=== PATIENT | male | born 1995 | race Hispanic/Latino ===

== ENCOUNTER 2018-12-15 12:29 | Emergency (ER) | payer SELFPAY ==
--- NOTE | 2018-12-15 13:57 | RAD REPORT ---
EXAM DESCRIPTION: RAD - Chest Pa And Lat (2 Views) - 12/15/2018 1:46 pm CLINICAL HISTORY: PRODUCTIVE COUGH Chest pain. COMPARISON: ABDOMEN 1 VIEW KUB dated 06/27/2013 FINDINGS: The lungs are clear. The heart is normal in size. No displaced fractures. IMPRESSION: No acute or concerning finding suspected.
[2018-12-15 14:00] LABS: Absolute Lymphocytes (CBC) 2.8 K/uL (0.7-4.9); Basophils % 0.7 % (0-1.3); Eosinophils % 3.5 % (0-4.4); Hematocrit 48.5 % (39.6-49.0); Lymphocytes % 24.4 % (15.3-44.8); MPV 8.7 fL (7.6-11.3); Monocytes % 6.1 % (3.3-12.3); RBC Red Blood Cell Count 5.58 M/uL (4.33-5.43)
[2018-12-15 14:10] LABS: ALT/SGPT 55 U/L (12-78); AST/SGOT 37 U/L (15-37); Albumin 3.8 g/dL (3.4-5.0); Alkaline Phosphatase 83 U/L (45-117); BUN Blood Urea Nitrogen 11 mg/dL (7-18); Bicarbonate 27 mmol/L (21-32); Bilirubin Direct < 0.1 mg/dL (0-0.2); Bilirubin Total 0.4 mg/dL (0.2-1.0); Glucose Level 95 mg/dL (74-106); Lipase 101 U/L (73-393); Potassium 4.8 mmol/L (3.5-5.1); Protein, Total 8.3 g/dL (6.4-8.2); Sodium Level 142 mmol/L (136-145)
--- NOTE | 2018-12-15 15:04 | EDPHYS ---
Physician Documentation [facility] Name: Ayden Marie Age: 22 yrs Sex: Male : 1995 Arrival Date: 12/15/2018 Time: 12:30 Bed 25 Private MD: ED Physician Aiden Muir HPI: 12/15 13:17 This 22 yrs old Male presents to ER via Ambulatory with complaints of Chest jmm Congestion, Diarrhea. 13:17 The patient or guardian reports cough. Onset: The symptoms/episode began/occurred jmm gradually, 4 day(s) ago. Associated signs and symptoms: Pertinent positives: diarrhea, sore throat. This is a 22 year old male with no chronic medical conditions that presents to the ED with complaints of cough, congestion beginning approx 4 days ago. Patient states having productive cough along with generalized weakness. . Historical: - Allergies: 12:44 No Known Allergies; hb - PSHx: 12:44 Appendectomy; hb - Immunization history:: Adult Immunizations up to date. - Social history:: Smoking status: Patient/guardian denies using tobacco. - Ebola Screening: : No symptoms or risks identified at this time. ROS: 13:17 Cardiovascular: Negative for chest pain, palpitations, and edema. jmm 13:17 Constitutional: Positive for malaise. 13:17 Respiratory: Positive for cough. 13:17 Abdomen/GI: Positive for vomiting, diarrhea. 13:17 Neuro: Positive for weakness. 13:17 All other systems are negative. Exam: 13:17 Constitutional: This is a well developed, well nourished patient who is awake, alert, jmm and in no acute distress. Head/Face: atraumatic. Eyes: EOMI, no conjunctival erythema appreciated ENT: Moist Mucus Membranes Neck: Trachea midline, Supple Chest/axilla: Normal chest wall appearance and motion. 13:17 Back: Normal ROM Skin: General appearance color normal MS/ Extremity: Moves all extremities, no obvious deformities appreciated, no edema noted to the lower extremities Neuro: Awake and alert, normal gait Psych: Behavior is normal, Mood is normal, Patient is cooperative and pleasant 13:17 Cardiovascular: Rate: normal, Rhythm: regular. 13:17 Respiratory: the patient does not display signs of respiratory distress, Respirations: normal, Breath sounds: are clear throughout. 13:17 Abdomen/GI: Inspection: abdomen appears normal, Bowel sounds: normal, Palpation: abdomen is soft and non-tender, in all quadrants. Vital Signs: 12:44 BP 147 / 83; Pulse 84; Resp 16; Temp 98.4; Pulse Ox 100% on R/A; Weight 117.93 kg; hb Height 5 ft. 8 in. (172.72 cm); Pain 0/10; 14:51 BP 138 / 72; Pulse 73; Resp 18; Temp 98.2; Pulse Ox 98% on R/A; mg2 12:44 Body Mass Index 39.53 (117.93 kg, 172.72 cm) hb MDM: 13:17 Patient medically screened. [facility] 15:00 Data reviewed: vital signs, nurses notes. Counseling: I had a detailed discussion with [facility] the patient and/or guardian regarding: the historical points, exam findings, and any diagnostic results supporting the discharge/admit diagnosis, lab results, radiology results, the need for outpatient follow up, to return to the emergency department if symptoms worsen or persist or if there are any questions or concerns that arise at home. 15:34 ED course: Patient is alert and non toxic in appearance in the ED. CXR clear. patient [facility] advised to follow up with pcp but otherwise given strict return precautions. . 12/15 13:21 Order name: Basic Metabolic Panel [facility] 12/15 13:21 Order name: CBC with Diff; Complete Time: 14:40 [facility] 12/15 13:21 Order name: Creatinine for Radiology; Complete Time: 14:40 [facility] 12/15 13:21 Order name: Hepatic Function; Complete Time: 14:40 [facility] 12/15 13:21 Order name: Lipase; Complete Time: 14:40 [facility] 12/15 13:22 Order name: Basic Metabolic Panel; Complete Time: 14:40 [facility] 12/15 13:21 Order name: IV Saline Lock; Complete Time: 13:26 [facility] 12/15 13:21 Order name: Labs collected and sent; Complete Time: 13:26 [facility] 12/15 13:21 Order name: Chest Pa And Lat (2 Views) XRAY; Complete Time: 14:01 [facility] Administered Medications: No medications were administered Disposition: 12/15/18 15:03 Discharged to Home. Impression: Acute bronchitis. - Condition is Stable. - Discharge Instructions: Acute Bronchitis, Adult. - Prescriptions for Albuterol Sulfate 90 mcg/actuation - inhale 1-2 puff by INHALATION route every 4-6 hours; 1 Inhaler. - Medication Reconciliation Form, Thank You Letter, Antibiotic Education, Prescription Opioid Use form. - Follow up: Private Physician; When: 2 - 3 days; Reason: Recheck today's complaints, Continuance of care, Re-evaluation by your physician. Addendum: 12/17/2018 07:35 Co-signature as Attending Physician, Aiden Muir MD. g s Signatures: Dispatcher [employer] EDMS Jonatan Estrella PA PA jmm Baxter, Heather, RN RN Aiden Muir MD MD Clinton Oneil RN RN mg2 Corrections: (The following items were deleted from the chart) 12/15 15:16 15:03 12/15/2018 15:03 Discharged to Home. Impression: Acute bronchitis. Condition is mg2 Stable. Forms are Medication Reconciliation Form, Thank You Letter, Antibiotic Education, Prescription Opioid Use. Follow up: Private Physician; When: 2 - 3 days; Reason: Recheck today's complaints, Continuance of care, Re-evaluation by your physician. yunior
--- NOTE | 2018-12-15 15:04 | ER ---
Nurse's Notes [facility] Name: Ayden Marie Age: 22 yrs Sex: Male : 1995 Arrival Date: 12/15/2018 Time: 12:30 Bed 25 Private MD: Diagnosis: Acute bronchitis Presentation: 12/15 12:42 Presenting complaint: Productive cough and pain with cough x 2-3 days, N/V/D today. hb Transition of care: patient was not received from another setting of care. Onset of symptoms was December 12, 2018. Risk Assessment: Do you want to hurt yourself or someone else? Patient reports no desire to harm self or others. Initial Sepsis Screen: Does the patient meet any 2 criteria? No. Patient's initial sepsis screen is negative. Does the patient have a suspected source of infection? No. Patient's initial sepsis screen is negative. Care prior to arrival: Medication(s) given: Unknown nasal sprray. 12:42 Method Of Arrival: Ambulatory hb 12:42 Acuity: YENNY 3 hb Historical: - Allergies: 12:44 No Known Allergies; hb - PSHx: 12:44 Appendectomy; hb - Immunization history:: Adult Immunizations up to date. - Social history:: Smoking status: Patient/guardian denies using tobacco. - Ebola Screening: : No symptoms or risks identified at this time. Screenin:49 Abuse screen: Denies threats or abuse. Denies injuries from another. Nutritional mg2 screening: No deficits noted. Tuberculosis screening: No symptoms or risk factors identified. Fall Risk IV access (20 points). Assessment: 13:47 General: Appears in no apparent distress. comfortable, Behavior is calm, cooperative. mg2 Pain: Denies pain. Neuro: Level of Consciousness is awake, alert, obeys commands, Oriented to person, place, time, situation. Cardiovascular: Capillary refill < 3 seconds Patient's skin is warm and dry. Respiratory: Airway is patent Respiratory effort is even, unlabored, Respiratory pattern is regular, symmetrical. Respiratory: Reports cough that is non-productive, since 2 weeks. GI: Abdomen is non-distended, Reports diarrhea. : No signs and/or symptoms were reported regarding the genitourinary system. EENT: No signs and/or symptoms were reported regarding the EENT system. Derm: Skin is intact, is healthy with good turgor, Skin is pink, warm \T\ dry. normal. Musculoskeletal: Circulation, motion, and sensation intact. Capillary refill < 3 seconds. 15:15 Reassessment: No changes from previously documented assessment. mg2 Vital Signs: 12:44 BP 147 / 83; Pulse 84; Resp 16; Temp 98.4; Pulse Ox 100% on R/A; Weight 117.93 kg; hb Height 5 ft. 8 in. (172.72 cm); Pain 0/10; 14:51 BP 138 / 72; Pulse 73; Resp 18; Temp 98.2; Pulse Ox 98% on R/A; mg2 12:44 Body Mass Index 39.53 (117.93 kg, 172.72 cm) hb ED Course: 12:30 Patient arrived in ED. as 12:44 Triage completed. hb 12:44 Arm band placed on. hb 13:02 Jonatan Estrella PA is PHCP. [facility] 13:02 Aiden Muir MD is Attending Physician. [facility] 13:09 Clinton Oneil, JOSIANE is Primary Nurse. mg2 13:45 Chest Pa And Lat (2 Views) XRAY In Process Unspecified. EDMS 13:49 Patient has correct armband on for positive identification. Pulse ox on. NIBP on. Door mg2 closed. 13:49 No provider procedures requiring assistance completed. Inserted saline lock: 20 gauge mg2 in left antecubital area, using aseptic technique. Blood collected. 15:15 IV discontinued, intact, bleeding controlled, No redness/swelling at site. Pressure mg2 dressing applied. Administered Medications: No medications were administered Outcome: 15:03 Discharge ordered by . yunior 15:15 Discharged to home ambulatory, with family. mg2 15:15 Condition: stable 15:15 Discharge instructions given to patient, Instructed on discharge instructions, follow up and referral plans. medication usage, Demonstrated understanding of instructions, follow-up care, medications, Prescriptions given X 1. 15:16 Patient left the ED. mg2 Signatures: Dispatcher [employer] EDMS Jonatan Estrella PA PA jmm Martinez, Amelia as Baxter, Heather, RN RN Clinton Oneil, JOSIANE RN mg2 Corrections: (The following items were deleted from the chart) 14:54 14:51 BP 138 / 72; Pulse 73bpm; Resp 18bpm; Pulse Ox 98% RA; mg2 mg2
[2018-12-15 15:41] VITALS: BP 138/72; TEMP 98.2; O2SAT 98
== END 2018-12-15 15:16 | disposition home or self-care (01) ==
LOC: ER 12:29
DX: J20.9 Acute bronchitis, unspecified (principal)
CPT/HCPCS: 36415; 71046; 80048; 80076; 83690; 85025; 99284

== ENCOUNTER 2019-05-17 15:38 | Emergency (ER) | payer SELFPAY ==
--- NOTE | 2019-05-17 17:16 | EDPHYS ---
Physician Documentation [facility] Name: Ayden Marie Age: 23 yrs Sex: Male : 1995 Arrival Date: 05/17/2019 Time: 15:44 Bed 24 Private MD: ED Physician Alexander Mathews HPI: 05/17 16:18 This 23 yrs old Male presents to ER via Ambulatory with complaints of Cough, jr8 Ear Pain, Sore Throat. 16:18 The patient or guardian reports cough, that is intermittent, described as mild, with no jr8 sputum. Onset: The symptoms/episode began/occurred acutely, 3 day(s) ago. Severity of symptoms: At their worst the symptoms were mild, in the emergency department the symptoms are unchanged. Modifying factors: The symptoms are alleviated by nothing, the symptoms are aggravated by nothing. Associated signs and symptoms: Pertinent positives: earache, sore throat. The patient has not experienced similar symptoms in the past. The patient has not recently seen a physician. Historical: - Allergies: 16:04 No Known Allergies; hb - Home Meds: 16:04 None [Active]; hb - PMHx: 16:04 None; hb - PSHx: 16:04 None; hb - Immunization history:: Adult Immunizations up to date. - Social history:: Smoking status: Patient/guardian denies using tobacco. - Ebola Screening: : No symptoms or risks identified at this time. ROS: 16:18 Eyes: Negative for injury, pain, redness, and discharge, Neck: Negative for injury, jr8 pain, and swelling, Cardiovascular: Negative for chest pain, palpitations, and edema, Abdomen/GI: Negative for abdominal pain, nausea, vomiting, diarrhea, and constipation, Back: Negative for injury and pain, MS/Extremity: Negative for injury and deformity, Skin: Negative for injury, rash, and discoloration, Neuro: Negative for headache, weakness, numbness, tingling, and seizure. 16:18 ENT: Positive for rhinorrhea, sore throat. 16:18 Respiratory: Positive for cough, Negative for dyspnea on exertion, shortness of breath, sputum production, wheezing. Exam: 16:18 Eyes: Pupils equal round and reactive to light, extra-ocular motions intact. Lids and jr8 lashes normal. Conjunctiva and sclera are non-icteric and not injected. Cornea within normal limits. Periorbital areas with no swelling, redness, or edema. Neck: Trachea midline, no thyromegaly or masses palpated, and no cervical lymphadenopathy. Supple, full range of motion without nuchal rigidity, or vertebral point tenderness. No Meningismus. Cardiovascular: Regular rate and rhythm with a normal S1 and S2. No gallops, murmurs, or rubs. Normal PMI, no JVD. No pulse deficits. Respiratory: Lungs have equal breath sounds bilaterally, clear to auscultation and percussion. No rales, rhonchi or wheezes noted. No increased work of breathing, no retractions or nasal flaring. Abdomen/GI: Soft, non-tender, with normal bowel sounds. No distension or tympany. No guarding or rebound. No evidence of tenderness throughout. Back: No spinal tenderness. No costovertebral tenderness. Full range of motion. Skin: Warm, dry with normal turgor. Normal color with no rashes, no lesions, and no evidence of cellulitis. MS/ Extremity: Pulses equal, no cyanosis. Neurovascular intact. Full, normal range of motion. Neuro: Awake and alert, GCS 15, oriented to person, place, time, and situation. Cranial nerves II-XII grossly intact. Motor strength 5/5 in all extremities. Sensory grossly intact. Cerebellar exam normal. Normal gait. 16:18 ENT: External ear(s): are unremarkable, Ear canal(s): are normal, clear, TM's: dullness, on the right, erythema, that is mild, on the right, Examination of the other ear shows no obvious abnormality, Nose: is normal, Mouth: Lips: moist, Oral mucosa: pink and intact, moist, Gums: pink, Tongue: is moist, Posterior pharynx: Airway: patent, Tonsils: are normal in appearance, no enlargement, no erythema, no exudate, no ulcerations, Uvula: midline, non-edematous, no erythema, swelling, is not appreciated, erythema, is not appreciated. Vital Signs: 16:04 BP 135 / 79; Pulse 100; Resp 16; Temp 98.4; Pulse Ox 100% on R/A; Weight 117.93 kg; hb Height 5 ft. 9 in. (175.26 cm); Pain 4/10; 17:15 BP 130 / 78; Pulse 98; Resp 18; Temp 99.3(O); Pulse Ox 100% on R/A; mg2 16:04 Body Mass Index 38.39 (117.93 kg, 175.26 cm) hb MDM: 15:53 Patient medically screened. jr8 17:24 Data reviewed: vital signs, nurses notes, and as a result, I will discharge patient. jr8 Data interpreted: Pulse oximetry: on room air is 100 %. Interpretation: normal. Counseling: I had a detailed discussion with the patient and/or guardian regarding: the historical points, exam findings, and any diagnostic results supporting the discharge/admit diagnosis, the need for outpatient follow up, a family practitioner, to return to the emergency department if symptoms worsen or persist or if there are any questions or concerns that arise at home. Administered Medications: No medications were administered Disposition: 05/17/19 17:14 Discharged to Home. Impression: Acute serous otitis media, right ear. - Condition is Stable. - Discharge Instructions: Otitis Media, Adult. - Prescriptions for Amoxicillin 875 mg Oral Tablet - take 1 tablet by ORAL route every 12 hours for 10 days; 20 tablet. Tamiflu 75 mg Oral Capsule - take 1 tablet by ORAL route every 12 hours for 5 days; 10 tablet. - Medication Reconciliation Form, Thank You Letter, Antibiotic Education, Prescription Opioid Use form. - Follow up: Private Physician; When: 1 week; Reason: Recheck today's complaints, Continuance of care, Re-evaluation by your physician. - Problem is new. - Symptoms have improved. Addendum: 05/18/2019 21:02 Co-signature as Attending Physician, Alexander Mathews MD I agree with the assessment and k dr plan of care. Signatures: Alexander Mathews MD MD [facility] Remigio Healy PA PA jr8 Heaven Hayden, RN RN hb Clinton Oneil RN RN mg2 Corrections: (The following items were deleted from the chart) 05/17 17:41 17:14 05/17/2019 17:14 Discharged to Home. Impression: Acute serous otitis media, right mg2 ear. Condition is Stable. Forms are Medication Reconciliation Form, Thank You Letter, Antibiotic Education, Prescription Opioid Use. Follow up: Private Physician; When: 1 week; Reason: Recheck today's complaints, Continuance of care, Re-evaluation by your physician. Problem is new. Symptoms have improved. jr8
--- NOTE | 2019-05-17 17:16 | ER ---
Nurse's Notes [facility] Name: Ayden Marie Age: 23 yrs Sex: Male : 1995 Arrival Date: 05/17/2019 Time: 15:44 Bed 24 Private MD: Diagnosis: Acute serous otitis media, right ear Presentation: 05/17 16:03 Presenting complaint: Cough, bilateral ear pain, sinus congestion, and sore throat x 3 hb days. Transition of care: patient was not received from another setting of care. Onset of symptoms was May 14, 2019. Risk Assessment: Do you want to hurt yourself or someone else? Patient reports no desire to harm self or others. Care prior to arrival: None. 16:03 Method Of Arrival: Ambulatory hb 16:03 Acuity: YENNY 4 hb 16:43 Initial Sepsis Screen: Does the patient meet any 2 criteria? No. Patient's initial mg2 sepsis screen is negative. Does the patient have a suspected source of infection? No. Patient's initial sepsis screen is negative. Historical: - Allergies: 16:04 No Known Allergies; hb - Home Meds: 16:04 None [Active]; hb - PMHx: 16:04 None; hb - PSHx: 16:04 None; hb - Immunization history:: Adult Immunizations up to date. - Social history:: Smoking status: Patient/guardian denies using tobacco. - Ebola Screening: : No symptoms or risks identified at this time. Screenin:42 Abuse screen: Denies threats or abuse. Denies injuries from another. Nutritional mg2 screening: No deficits noted. Tuberculosis screening: No symptoms or risk factors identified. Fall Risk None identified. Assessment: 16:40 General: Appears in no apparent distress. comfortable, Behavior is calm, cooperative. mg2 Pain: Complains of pain in right ear and left ear and throat. Neuro: Level of Consciousness is awake, alert, obeys commands, Oriented to person, place, time, situation. Cardiovascular: Capillary refill < 3 seconds Patient's skin is warm and dry. Respiratory: Reports cough that is. GI: No signs and/or symptoms were reported involving the gastrointestinal system. : No signs and/or symptoms were reported regarding the genitourinary system. EENT: Reports pain in both ears. Derm: Skin is intact, is healthy with good turgor, Skin is pink, warm \T\ dry. normal. Musculoskeletal: Circulation, motion, and sensation intact. Capillary refill < 3 seconds. Vital Signs: 16:04 BP 135 / 79; Pulse 100; Resp 16; Temp 98.4; Pulse Ox 100% on R/A; Weight 117.93 kg; hb Height 5 ft. 9 in. (175.26 cm); Pain 4/10; 17:15 BP 130 / 78; Pulse 98; Resp 18; Temp 99.3(O); Pulse Ox 100% on R/A; mg2 16:04 Body Mass Index 38.39 (117.93 kg, 175.26 cm) hb ED Course: 15:44 Patient arrived in ED. ag5 15:49 [facility] Ale[facility]C [facility] la[facility] 15:49 Alexander Mathews MD is Attending Physician. la1 15:53 Remigio Healy [facility]. jr8 15:53 Alexander Mathews MD is Attending Physician. jr8 16:04 Triage completed. hb 16:04 Arm band placed on. hb 16:40 Clinton Oneil, JOSIANE is Primary Nurse. mg2 16:43 Patient has correct armband on for positive identification. mg2 16:43 No provider procedures requiring assistance completed. Patient did not have IV access mg2 during this emergency room visit. Administered Medications: No medications were administered Outcome: 17:14 Discharge ordered by MD. jr8 17:40 Discharged to home ambulatory, with family. mg2 17:40 Condition: stable 17:40 Discharge instructions given to patient, family, Instructed on discharge instructions, follow up and referral plans. medication usage, Demonstrated understanding of instructions, follow-up care, medications, Prescriptions given X 2. 17:41 Patient left the ED. mg2 Signatures: Remigio Healy PA PA jr8 Jason Alejo FNP-C [employer]-Cla1 Heaven Hayden RN RN Clinton Oneil RN RN mg2 Johan Wheeler ag5 Corrections: (The following items were deleted from the chart) 23:11 17:15 Temp 99.3F Oral; mg2 mg2
[2019-05-17 20:49] VITALS: BP 135/79; O2SAT 100
[2019-05-17 20:51] VITALS: TEMP 99.3
== END 2019-05-17 17:41 | disposition home or self-care (01) ==
LOC: ER 15:38
DX: H65.01 Acute serous otitis media, right ear (principal)
CPT/HCPCS: 99282

== ENCOUNTER 2020-02-26 01:26 | Emergency (ER) | payer SELFPAY ==
[2020-02-26] MEDS ORDERED: ONDANSETRON 4 MG/2 ML VIAL ONE (02:36)
[2020-02-26] MEDS ORDERED: PANTOPRAZOLE 40MG TABLET PO ONE (02:36)
[2020-02-26] MEDS ORDERED: NA CHLORIDE 0.9% 0 ML ONE (02:36)
[2020-02-26] MEDS ORDERED: MORPHINE 4 MG/ML SYR ONE (02:36)
--- NOTE | 2020-02-26 02:37 | ER ---
Nurse's Notes [facility] Name: Ayden Marie Age: 24 yrs Sex: Male : 1995 Arrival Date: 02/26/2020 Time: 01:33 Bed 16 Private MD: Diagnosis: Anxiety disorder Presentation: 02/25 01:48 Chief complaint: Patient states: Pt found out was cheating on him in, Pt hasn't wh slept in 2 days, C/O weakness and headache. Pt states also having nausea. Coronavirus screen: Client denies travel out of the [place] in the last 14 days. At this time, the client does not indicate any symptoms associated with coronavirus-19. Ebola Screen: Patient negative for fever greater than or equal to 101.5 degrees Fahrenheit, and additional compatible Ebola Virus Disease symptoms Patient denies exposure to infectious person. 01:48 Method Of Arrival: Wheelchair 01:50 Initial Sepsis Screen: Does the patient meet any 2 criteria? HR > 90 bpm. Does the patient have a suspected source of infection? No. Patient's initial sepsis screen is negative. Risk Assessment: Do you want to hurt yourself or someone else? Patient reports no desire to harm self or others. Onset of symptoms was February 26, 2020. 01:50 Acuity: YENNY 3 Historical: - Allergies: 01:50 No Known Allergies; - Home Meds: 01:50 None [Active]; - PMHx: 01:50 Borderline Hypertension; - PSHx: 01:50 Appendectomy; - Immunization history:: Adult Immunizations up to date. - Social history:: Smoking status: Patient reports the use of cigarette tobacco products, smokes one pack cigarettes per day. Patient/guardian denies using alcohol, street drugs. Screenin:50 Abuse screen: Denies threats or abuse. Denies injuries from another. Nutritional screening: No deficits noted. Tuberculosis screening: No symptoms or risk factors identified. Fall Risk None identified. 01:52 VAN Screening: Arm Drift: Patient shows no arm weakness. Visual Disturbance: No visual wh disturbance noted. Aphasia: No aphasia noted. Neglect: No neglect noted. Assessment: 01:51 General: Appears in no apparent distress. Behavior is calm, cooperative, appropriate for age. Pain: Complains of pain in head ache. Neuro: Level of Consciousness is awake, alert, obeys commands, Oriented to person, place, time, situation, Appropriate for age. Neuro: Reports headache frontal area. Cardiovascular: Heart tones S1 S2. Respiratory: Airway is patent Respiratory effort is even, unlabored, Respiratory pattern is regular, symmetrical, Breath sounds are clear bilaterally. GI: Abdomen is round non-distended. : No signs and/or symptoms were reported regarding the genitourinary system. EENT: No signs and/or symptoms were reported regarding the EENT system. Derm: Skin is intact, is healthy with good turgor, Skin is pink, warm \\T\\ dry. normal. Musculoskeletal: Circulation, motion, and sensation intact. 02:29 Reassessment: PT states " I don't want anything done. I just want some tylenol for my jb4 headache and to go home. I am not suicidal, I just had a panic attack and I want to go home. I don't need to worry my mother or sister any worse than I already have." Explained the intended test and the reason for them, explained the medications ordered ant the reasons why, pt continues to refuse medical treatment. Pt verbalized understanding of need to return to ED should symptoms persist or get worse. Provider notified, Received verbal order for 1g of tylenol. Vital Signs: 01:48 BP 158 / 93; Pulse 92; Resp 18; Temp 98.9; Pulse Ox 99% ; Weight 117.93 kg; Height 5 wh ft. 9 in. (175.26 cm); Pain 6/10; 01:48 Body Mass Index 38.39 (117.93 kg, 175.26 cm) ED Course: 01:33 Patient arrived in ED. cl3 01:34 Ritesh Wood is Primary Nurse. wh 01:36 Won Arevalo MD is Attending Physician. pkl 01:51 Triage completed. 01:52 Arm band placed on right wrist. 01:52 Patient has correct armband on for positive identification. Bed in low position. Call light in reach. Side rails up X 1. Pulse ox on. NIBP on. 02:39 No provider procedures requiring assistance completed. Patient did not have IV access during this emergency room visit. Administered Medications: 02:28 Drug: Tylenol 1000 mg Route: PO; jb4 02:40 Follow up: Response: No adverse reaction 02:29 Not Given (Patient Refused): NS 0.9% 1000 ml IV at 1000 ml once jb4 02:29 Not Given (Patient Refused): morphine 4 mg IVP once; RASS on ADMIN: Combtv4, Very jb4 Agttd3, Agttd2, Rstlss1, AlertClm0, Drwsy-1, Lt Sdtn-2, Mod Sdtn-3, Dp Sdtn-4, UnArsble-5 02:29 Not Given (Patient Refused): Zofran (Ondansetron) 4 mg IVP once; over 2 minutes jb4 02:29 Not Given (Patient Refused): ProTONIX 40 mg PO once jb4 Outcome: 02:37 Discharge ordered by . kanwal 02:39 AMA Left before signing form. 02:39 Condition: stable 02:39 Instructed on follow up and referral plans. 02:40 Patient left the ED. Signatures: Won Arevalo MD MD pkl Bryson, James, RN RN jb4 Ritesh Wood Charde cl3 Corrections: (The following items were deleted from the chart) 01:55 01:48 Chief complaint: Patient states: haven't slept and ate n 2 days, C/O weakness and wh headache. Pt states also having nausea 02:44 02:29 Reassessment: PT states " I don't want anything done. I just want some tylenol jb4 for my headache and to go home. I am not suicidal, I just had a panic attack and I want to go home. I don't need to worry my mother or sister any worse than I already have." Provider notified, Received verbal order for 1g of tylenol jb4
--- NOTE | 2020-02-26 02:38 | EDPHYS ---
Physician Documentation [facility] Name: Ayden Marie Age: 24 yrs Sex: Male : 1995 Arrival Date: 02/26/2020 Time: 01:33 Bed 16 Private MD: ED Physician Won Arevalo HPI: 02/25 02:14 This 24 yrs old Male presents to ER via Wheelchair with complaints of pkl Weakness, Cough. 02:14 The patient complains of pain to the top of head and forehead. The patient describes pkl the headache as constant. Onset: The symptoms/episode began/occurred 2 day(s) ago. Associated signs and symptoms: Pertinent positives: nausea, unable to sleep. Patient said symptoms started when he found out his was cheating on him. Historical: - Allergies: 01:50 No Known Allergies; wh - Home Meds: 01:50 None [Active]; wh - PMHx: 01:50 Borderline Hypertension; wh - PSHx: 01:50 Appendectomy; wh - Immunization history:: Adult Immunizations up to date. - Social history:: Smoking status: Patient reports the use of cigarette tobacco products, smokes one pack cigarettes per day. Patient/guardian denies using alcohol, street drugs. ROS: 02:14 Eyes: Negative for injury, pain, redness, and discharge, ENT: Negative for injury, pkl pain, and discharge, Neck: Negative for injury, pain, and swelling, Cardiovascular: Negative for chest pain, palpitations, and edema, Respiratory: Negative for shortness of breath, cough, wheezing, and pleuritic chest pain. 02:14 Abdomen/GI: Positive for nausea. 02:14 Back: Negative for pain at rest. 02:14 : Negative for urinary symptoms. 02:14 MS/extremity: Negative for acute changes. 02:14 Skin: Negative for rash. 02:14 Neuro: Positive for headache. Exam: 02:14 Head/Face: Normocephalic, atraumatic. Eyes: Pupils equal round and reactive to light, pkl extra-ocular motions intact. Lids and lashes normal. Conjunctiva and sclera are non-icteric and not injected. Cornea within normal limits. Periorbital areas with no swelling, redness, or edema. ENT: Nares patent. No nasal discharge, no septal abnormalities noted. Tympanic membranes are normal and external auditory canals are clear. Oropharynx with no redness, swelling, or masses, exudates, or evidence of obstruction, uvula midline. Mucous membranes moist. Neck: Trachea midline, no thyromegaly or masses palpated, and no cervical lymphadenopathy. Supple, full range of motion without nuchal rigidity, or vertebral point tenderness. No Meningismus. Chest/axilla: Normal chest wall appearance and motion. Nontender with no deformity. No lesions are appreciated. Cardiovascular: Regular rate and rhythm with a normal S1 and S2. No gallops, murmurs, or rubs. Normal PMI, no JVD. No pulse deficits. Respiratory: Lungs have equal breath sounds bilaterally, clear to auscultation and percussion. No rales, rhonchi or wheezes noted. No increased work of breathing, no retractions or nasal flaring. Abdomen/GI: Soft, non-tender, with normal bowel sounds. No distension or tympany. No guarding or rebound. No evidence of tenderness throughout. Back: No spinal tenderness. No costovertebral tenderness. Full range of motion. Skin: Warm, dry with normal turgor. Normal color with no rashes, no lesions, and no evidence of cellulitis. MS/ Extremity: Pulses equal, no cyanosis. Neurovascular intact. Full, normal range of motion. Neuro: Awake and alert, GCS 15, oriented to person, place, time, and situation. Cranial nerves II-XII grossly intact. Motor strength 5/5 in all extremities. Sensory grossly intact. Cerebellar exam normal. Normal gait. Vital Signs: 01:48 BP 158 / 93; Pulse 92; Resp 18; Temp 98.9; Pulse Ox 99% ; Weight 117.93 kg; Height 5 wh ft. 9 in. (175.26 cm); Pain 6/10; 01:48 Body Mass Index 38.39 (117.93 kg, 175.26 cm) wh MDM: 01:36 Patient medically screened. pkl 02:34 Data reviewed: vital signs, nurses notes. ED course: Patient does not want any any pkl tests done. Request Tylenol for his headache and left the ER without telling nursing staff. 02/25 02:13 Order name: CBC with Diff pkl 02/25 02:13 Order name: Chem 7 pkl 02/25 02:13 Order name: LFT's pkl 02/25 02:13 Order name: UDS pkl Administered Medications: :28 Drug: Tylenol 1000 mg Route: PO; jb4 02:40 Follow up: Response: No adverse reaction 02:29 Not Given (Patient Refused): NS 0.9% 1000 ml IV at 1000 ml once jb4 02:29 Not Given (Patient Refused): morphine 4 mg IVP once; RASS on ADMIN: Combtv4, Very jb4 Agttd3, Agttd2, Rstlss1, AlertClm0, Drwsy-1, Lt Sdtn-2, Mod Sdtn-3, Dp Sdtn-4, UnArsble-5 02:29 Not Given (Patient Refused): Zofran (Ondansetron) 4 mg IVP once; over 2 minutes jb4 02:29 Not Given (Patient Refused): ProTONIX 40 mg PO once jb4 Disposition: 02/26/20 02:37 Discharged to Home. Impression: Anxiety disorder. - Condition is Stable. - Medication Reconciliation Form, Thank You Letter, Antibiotic Education, Prescription Opioid Use form. - Follow up: Private Physician; When: 1 - 2 days; Reason: Re-evaluation by your physician. - Problem is new. - Symptoms have improved. Signatures: Dispatcher [employer] EDWon Beltran MD MD pkl Walt Oscar RN RN jb4 Ritesh Wood Corrections: (The following items were deleted from the chart) 02:40 02:37 02/26/2020 02:37 Discharged to Home. Impression: Anxiety disorder. Condition is wh Stable. Forms are Medication Reconciliation Form, Thank You Letter, Antibiotic Education, Prescription Opioid Use. Follow up: Private Physician; When: 1 - 2 days; Reason: Re-evaluation by your physician. Problem is new. Symptoms have improved. pkl
[2020-02-26] MEDS ORDERED: ACETAMINOPHEN 500 MG TAB ONE (02:39)
[2020-02-26 02:46] VITALS: BP 158/93; TEMP 98.9; O2SAT 99
== END 2020-02-26 02:40 | disposition home or self-care (01) ==
LOC: ER 01:26
DX: F41.9 Anxiety disorder, unspecified (principal); F17.210 Nicotine dependence, cigarettes, uncomplicated
CPT/HCPCS: 99283; J2405; J7030

== ENCOUNTER 2021-03-12 23:09 | Emergency (ER) | payer SELFPAY ==
--- NOTE | 2021-03-12 23:48 | ER ---
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 Coronavirus df1 screen: Vaccine status: Patient reports being unvaccinated. The client reports previous COVID testing was negative. Date of collection: September 2020. Ebola Screen: Patient negative for fever greater than or equal to 101.5 degrees Fahrenheit, and additional compatible Ebola Virus Disease symptoms Patient denies exposure to infectious person. Patient denies travel to an Ebola-affected area in the 21 days before illness onset. Initial Sepsis Screen: Does the patient meet any 2 criteria? No. Patient's initial sepsis screen is negative. Does the patient have a suspected source of infection? No. Patient's initial sepsis screen is negative. Risk Assessment: Do you want to hurt yourself or someone else? Patient reports no desire to harm self or others. Onset of symptoms was March 12, 2021 at 22:30. 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 Not current on Tetanus shot. No bleeding noted. 2-3 cm laceration noted. Dressing applied. MSP's intact to left hand. Triage Assessment: 00:20 General: Appears in no apparent distress. comfortable, obese, well groomed, well dc2 developed. Pain: Complains of pain in Left hand / thumb /laceration site. Musculoskeletal: No deficits noted. No signs and/or symptoms reported regarding the musculoskeletal system. Injury Description: Laceration sustained to anterior palm near thumb arpit 1 inch in length , bleeding controlled. a small amount of bleeding noted at this time. 23:20 General: Behavior is calm, cooperative. dc2 Historical: - Allergies: 23:18 No Known Allergies; df1 - Home Meds: 23:18 None [Active]; df1 - PMHx: 23:18 borderline hypertension; df1 - PSHx: 23:18 Appendectomy; df1 - Immunization history:: Client reports receiving the 1st dose of the Covid vaccine, Last tetanus immunization: > 10 years ago. - Social history:: Smoking status: Patient reports the use of cigarette tobacco products, smokes one pack cigarettes per day. Screenin:20 Abuse screen: Denies threats or abuse. Denies injuries from another. Nutritional dc2 screening: No deficits noted. Tuberculosis screening: No symptoms or risk factors identified. Never had TB. 23:20 Fall Risk None identified. dc2 Assessment: 23:20 Pain: Complains of pain in thenar area left thumb with laceration arpit 3cm long 1cm dc2 width, bleeding controlled. Cut while carving pumpkins this evening. 23:20 Neuro: No deficits noted. Derm: No deficits noted. dc2 Vital Signs: 23:17 Pulse 80; Resp 18; Temp 98.2; Pulse Ox 100% on R/A; Weight 127.01 kg; Height 5 ft. 9 df1 in. (175.26 cm); Pain 10/10; 23:17 BP 165 / 88; df1 23:56 BP 152 / 70; Pulse 74; Resp 18; Pulse Ox 99% on R/A; Pain 5/10; wg 23:17 Body Mass Index 41.35 (127.01 kg, 175.26 cm) df1 ED Course: 00:20 Arm band placed on right wrist. dc2 23:10 Patient arrived in ED. cf2 23:18 Triage completed. df1 23:20 Call light in reach. dc2 23:20 No provider procedures requiring assistance completed. dc2 23:20 Patient did not have IV access during this emergency room visit. dc2 23:22 Remigio Healy PA is PHCP. jr8 23:22 Rex Mora MD is Attending Physician. jr8 23:33 Juliana Mchugh, JOSIANE is Primary Nurse. 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 Exp: wg 08/15/2022. Lot #: [id number]. } Route: IM; Site: right deltoid; 03/13 00:07 Follow up: Response: No adverse reaction wg 03/12 23:30 Drug: Lidocaine (1 %) 5 mg Route: Infiltration; wg 23:55 Drug: [place] (HYDROcodone-acetaminophen) (7.5 mg-325 mg) 1 tabs Route: PO; wg 23:55 Follow up: Response: No adverse reaction wg Outcome: 23:48 Discharge ordered by MD. persaud 03/13 00:00 Discharged to home ambulatory. wg Condition: stable Discharge instructions given to patient, Instructed on discharge instructions, follow up and referral plans. Demonstrated understanding of instructions, follow-up care. 00:07 Patient left the ED. wg Signatures: Remigio Healy PA PA jr8 Frazier, Celesta cf2 Scout Monte, RN Shelley Bean df1 Juliana Mchugh RN RN dc2
--- NOTE | 2021-03-12 23:48 | EDPHYS ---
Physician Documentation [facility] Name: Ayden Marie Age: 25 yrs Sex: Male : 1995 Arrival Date: 03/12/2021 Time: 23:10 Bed 12 Private MD: ED Physician Rex Mora HPI: 03/12 23:46 This 25 yrs old Male presents to ER via Ambulatory with complaints of Finger jr8 Injury, FINGER LACERATION. 23:46 Onset: The symptoms/episode began/occurred acutely, today. The patient has not jr8 experienced similar symptoms in the past. The patient has not recently seen a physician. Stated that he was carving a pumpkin with a box knife and accidentally lacerated the thenar presence of his left thumb. Historical: - Allergies: 23:18 No Known Allergies; df1 - Home Meds: 23:18 None [Active]; df1 - PMHx: 23:18 borderline hypertension; df1 - PSHx: 23:18 Appendectomy; df1 - Immunization history:: Client reports receiving the 1st dose of the Covid vaccine, Last tetanus immunization: > 10 years ago. - Social history:: Smoking status: Patient reports the use of cigarette tobacco products, smokes one pack cigarettes per day. ROS: 23:46 Eyes: Negative for injury, pain, redness, and discharge, ENT: Negative for injury, jr8 pain, and discharge, Neck: Negative for injury, pain, and swelling, Cardiovascular: Negative for chest pain, palpitations, and edema, Respiratory: Negative for shortness of breath, cough, wheezing, and pleuritic chest pain, Abdomen/GI: Negative for abdominal pain, nausea, vomiting, diarrhea, and constipation, Back: Negative for injury and pain. 23:46 MS/extremity: Positive for laceration, of the Thenar presents left thumb. 23:46 Skin: Positive for laceration(s). Exam: 23:46 Constitutional: This is a well developed, well nourished patient who is awake, alert, jr8 and in no acute distress. Cardiovascular: Regular rate and rhythm with a normal S1 and S2. No gallops, murmurs, or rubs. Normal PMI, no JVD. No pulse deficits. Respiratory: Lungs have equal breath sounds bilaterally, clear to auscultation and percussion. No rales, rhonchi or wheezes noted. No increased work of breathing, no retractions or nasal flaring. MS/ Extremity: Pulses equal, no cyanosis. Neurovascular intact. Full, normal range of motion. Neuro: Awake and alert, GCS 15, oriented to person, place, time, and situation. Cranial nerves II-XII grossly intact. Motor strength 5/5 in all extremities. Sensory grossly intact. Cerebellar exam normal. Normal gait. 23:46 Skin: injury, laceration(s), the wound is approximately 3 cm(s), with a depth of 1 cm(s), of the Thenar presents left thumb, that can be described as no foreign body, linear, with mild bleeding. Vital Signs: 23:17 Pulse 80; Resp 18; Temp 98.2; Pulse Ox 100% on R/A; Weight 127.01 kg; Height 5 ft. 9 df1 in. (175.26 cm); Pain 10/10; 23:17 BP 165 / 88; df1 23:56 BP 152 / 70; Pulse 74; Resp 18; Pulse Ox 99% on R/A; Pain 5/10; wg 23:17 Body Mass Index 41.35 (127.01 kg, 175.26 cm) df1 Laceration: 23:44 Wound Repair of 3cm ( 1.2in ) subcutaneous laceration to left thenar region of thumb. jr8 Irregularly shaped.. Minimal bleeding noted.. Distal neuro/vascular/tendon intact. Anesthesia: Local anesthetic administered with 4 mls of 1% lidocaine. Wound prep: Moderate cleansing with hibiclenz, Wound irrigation with saline, Wound explored extensively. Skin closed with 3 4-0 Prolene using interrupted sutures and sterile technique. Patient tolerated well. MDM: 23:23 Patient medically screened. jr8 23:46 Data reviewed: vital signs, nurses notes, and as a result, I will discharge patient. jr8 Data interpreted: Pulse oximetry: on room air is 100 %. Interpretation: normal. Counseling: I had a detailed discussion with the patient and/or guardian regarding: the historical points, exam findings, and any diagnostic results supporting the discharge/admit diagnosis, the need for outpatient follow up, a family practitioner, to return to the emergency department if symptoms worsen or persist or if there are any questions or concerns that arise at home. 03/12 23:45 Order name: Dressing - Wound; Complete Time: 23:45 8 03/12 23:45 Order name: Gloves, Sterile; Complete Time: 23:46 8 03/12 23:45 Order name: Prolene, Sutures; Complete Time: 23:46 8 03/12 23:45 Order name: Setup Suture Tray; Complete Time: 23:46 jr8 Administered Medications: 23:30 Drug: Tetanus-Diphtheria Toxoid Adult 0.5 ml {[employer]: [employer]. Exp: 08/15/2022. Lot #: [id number]. } Route: IM; Site: right deltoid; 03/13 00:07 Follow up: Response: No adverse reaction 03/12 23:30 Drug: Lidocaine (1 %) 5 mg Route: Infiltration; 23:55 Drug: [place] (HYDROcodone-acetaminophen) (7.5 mg-325 mg) 1 tabs Route: PO; 23:55 Follow up: Response: No adverse reaction Disposition: 03/13 01:59 Co-signature as Attending Physician, Rex Mora MD I agree with the assessment and rn plan of care. Attestation: The patient's history, exam findings, diagnostics, and a summary of any interventions or procedures was reviewed in detail with Remigio HOUSTON. Disposition Summary: 03/12/21 23:48 Discharge Ordered Location: Home [facility] Problem: new jr8 Symptoms: have improved jr8 Condition: Stable jr8 Diagnosis - Laceration without foreign body of left hand jr8 Followup: jr8 - With: Private Physician - When: 7 - 10 days - Reason: Wound Recheck, Recheck today's complaints, Continuance of care, Staple/Suture removal, Re-evaluation by your physician Discharge Instructions: - Discharge Summary Sheet jr8 - Laceration Care, Adult jr8 Forms: - Medication Reconciliation Form jr8 - Thank You Letter jr8 - Antibiotic Education jr8 - Prescription Opioid Use jr8 Signatures: Rex Mora MD MD rn Roszak, Josh, PA PA jr8 Scout Monte, RN Shelley Hassan df1
[2021-03-12] MEDS ORDERED: LIDOCAINE 1% MPF 5 ML VIAL ONE (23:57)
[2021-03-12] MEDS ORDERED: TETANUS & DIPHTHERIA TOX,ADULT 0.5 ML VIAL ONE (23:58)
[2021-03-13 00:12] VITALS: TEMP 98.2
[2021-03-13 00:13] VITALS: BP 152/70; O2SAT 99
[2021-03-13] MEDS ORDERED: HYDROCODONE/APAP 7.5/325 MG TAB ONE (00:17)
== END 2021-03-13 00:07 | disposition home or self-care (01) ==
LOC: ER 23:09
PROC: 0JQK0ZZ Repair Left Hand Subcutaneous Tissue and Fascia, Open Approach (ICD-10-PCS; principal; 2021-03-13)
DX: S61.012A Laceration without foreign body of left thumb without damage to nail, initial encounter (principal); W26.0XXA Contact with knife, initial encounter; Y93.89 Activity, other specified; Z23 Encounter for immunization; F17.210 Nicotine dependence, cigarettes, uncomplicated
CPT/HCPCS: 90471; 90714; 99283

== ENCOUNTER 2021-03-14 00:46 | Emergency (ER) | payer SELFPAY ==
[2021-03-14 01:24] LABS: Urine Blood 3+ (Negative); Urine Glucose Negative (Negative); Urine Protein Negative (Negative)
[2021-03-14 01:40] LABS: Absolute Lymphocytes (CBC) 3.7 K/uL (0.7-4.9); Lymphocytes % 27.5 % (15.3-44.8); MPV 7.8 fL (7.6-11.3); RBC Red Blood Cell Count 4.93 M/uL (4.33-5.43)
[2021-03-14 01:42] LABS: Urine Bacteria <20 /HPF (NONE SEEN); Urine RBC 20-50 /HPF (NONE SEEN)
[2021-03-14 01:54] LABS: ALT/SGPT 41 U/L (12-78); AST/SGOT 25 U/L (15-37); Albumin 3.7 g/dL (3.4-5.0); Alkaline Phosphatase 74 U/L (45-117); BUN Blood Urea Nitrogen 10 mg/dL (7-18); Bicarbonate 25 mmol/L (21-32); Bilirubin Direct 0.1 mg/dL (0-0.2); Bilirubin Total 0.4 mg/dL (0.2-1.0); Glucose Level 103 mg/dL (74-106); Lipase 100 U/L (73-393); Potassium 3.7 mmol/L (3.5-5.1); Sodium Level 142 mmol/L (136-145)
--- NOTE | 2021-03-14 02:46 | EDPHYS ---
Physician Documentation [facility] Name: Ayden Marie Age: 25 yrs Sex: Male : 1995 Arrival Date: 03/14/2021 Time: 00:49 Bed 20 Private MD: ED Physician Rex Mora HPI: 03/14 01:14 This 25 yrs old Male presents to ER via Ambulatory with complaints of Blood in rn urine, pain on left side. 01:14 The patient complains of pain in the Left flank. The pain radiates to the pelvis. rn Onset: The symptoms/episode began/occurred just prior to arrival. Modifying factors: The symptoms are alleviated by nothing. the symptoms are aggravated by nothing. Associated signs and symptoms: Pertinent positives: dysuria, urinary frequency, hematuria, Pertinent negatives: fever. Severity of pain: At its worst the pain was moderate in the emergency department the pain has improved. The patient has not experienced similar symptoms in the past. The patient has not recently seen a physician. Patient reports sudden onset left abdominal and flank pain that radiates to left groin and left testicle felt funny. Denies any testicular pain or injury. Reports increased frequency and dysuria and noticed a little bit of blood in urine tonight. No history of kidney stones.. Historical: - Allergies: 01:02 No Known Allergies; sj1 - Home Meds: 01:02 None [Active]; sj1 - PSHx: 01:02 Appendectomy; sj1 - Immunization history:: Adult Immunizations up to date, Client reports receiving the 1st dose of the Covid vaccine. - Social history:: Smoking status: Patient reports the use of cigarette tobacco products, smokes one-half pack cigarettes per day, Patient uses alcohol, occasionally. Patient/guardian denies using street drugs. - Family history:: not pertinent. - Hospitalizations: : No recent hospitalization is reported. ROS: 01:14 Constitutional: Negative for fever, chills, and weight loss, Eyes: Negative for injury, rn pain, redness, and discharge, Neck: Negative for injury, pain, and swelling, Cardiovascular: Negative for chest pain, palpitations, and edema, Respiratory: Negative for shortness of breath, cough, wheezing, and pleuritic chest pain, Abdomen/GI: Positive for left-sided abdominal pain Back: Negative for injury and pain, : Positive for dysuria and hematuria MS/Extremity: Negative for injury and deformity, Skin: Negative for injury, rash, and discoloration, Neuro: Negative for headache, weakness, numbness, tingling, and seizure. Exam: 01:14 Constitutional: This is a well developed, well nourished patient who is awake, alert, rn and in no acute distress. Ambulatory to room without assistance or distress Head/Face: Normocephalic, atraumatic. Eyes: Periorbital areas with no swelling, redness, or edema. Cardiovascular: Regular rate and rhythm. No pulse deficits. Respiratory: No increased work of breathing, no retractions or nasal flaring. Abdomen/GI: Soft, non-tender Back: No spinal tenderness. No costovertebral tenderness. Full range of motion. Skin: Warm, dry with normal turgor. Normal color with no rashes, no lesions, and no evidence of cellulitis. MS/ Extremity: Pulses equal, no cyanosis. Neurovascular intact. Full, normal range of motion. Equal circumference. Neuro: Awake and alert, GCS 15, oriented to person, place, time, and situation. Cranial nerves II-XII grossly intact. Motor strength 5/5 in all extremities. Sensory grossly intact. Cerebellar exam normal. Normal gait. Vital Signs: 00:59 BP 135 / 81; Pulse 87; Resp 18 S; Temp 98.7(O); Pulse Ox 98% on R/A; Weight 127.01 kg sj1 (R); Height 5 ft. 9 in. (175.26 cm) (R); Pain 5/10; 02:45 BP 131 / 84; Pulse 84; Resp 17; Temp 98.6; Pulse Ox 99% on R/A; mr2 00:59 Body Mass Index 41.35 (127.01 kg, 175.26 cm) sj1 MDM: 01:06 Patient medically screened. rn 02:43 Differential diagnosis: nephrolithiasis, pyelonephritis, UTI, diverticulitis. Data rn reviewed: vital signs, nurses notes, lab test result(s), radiologic studies, CT scan, and as a result, I will discharge patient. Counseling: I had a detailed discussion with the patient and/or guardian regarding: the historical points, exam findings, and any diagnostic results supporting the discharge/admit diagnosis, lab results, radiology results, the need for outpatient follow up, to return to the emergency department if symptoms worsen or persist or if there are any questions or concerns that arise at home. Response to treatment: the patient's symptoms have markedly improved after treatment, and as a result, I will discharge patient. Special discussion: I discussed with the patient/guardian in detail that at this point there is no indication for admission to the hospital. It is understood, however, that if the symptoms persist or worsen the patient needs to return immediately for re-evaluation. ED course: Patient improved. CT does not show any acute urinary calculus or obstruction. Urine dip and micro only show blood. No gross blood when looking at urine sample. Will DC home as most likely recently passed kidney stone. Will cover with antibiotics and given return precautions.. 03/14 01:10 Order name: Basic Metabolic Panel 03/14 01:10 Order name: CBC with Diff 03/14 01:10 Order name: Hepatic Function; Complete Time: 02:34 03/14 01:10 Order name: Lipase; Complete Time: 02:34 03/14 01:10 Order name: Urine Culture 03/14 01:10 Order name: Urine Microscopic Only; Complete Time: 02:34 03/14 01:10 Order name: IV Saline Lock; Complete Time: 01:43 03/14 01:10 Order name: Labs collected and sent; Complete Time: 01:43 03/14 01:10 Order name: CT Stone Protocol 03/14 01:10 Order name: Urine Dipstick-Ancillary (obtain specimen); Complete Time: 01:20 03/14 01:11 Order name: Basic Metabolic Panel; Complete Time: 02:34 EDMS 03/14 01:11 Order name: CBC with Automated Diff; Complete Time: 02:34 EDMS 03/14 01:23 Order name: Urine Dipstick-Ancillary; Complete Time: 02:34 EDMS Administered Medications: No medications were administered Disposition Summary: 03/14/21 02:45 Discharge Ordered Location: Home rn Problem: new rn Symptoms: have improved rn Condition: Stable rn Diagnosis - Hematuria, unspecified rn - Urinary calculus, unspecified rn Followup: rn - With: Private Physician - When: As needed - Reason: Recheck today's complaints, Re-evaluation by your physician Discharge Instructions: - Discharge Summary Sheet rn - Hematuria, Adult rn - Kidney Stones rn - Renal Colic rn Forms: - Medication Reconciliation Form rn - Thank You Letter rn - Antibiotic furnace maintenance - Prescription Opioid Use rn Prescriptions: - Cipro 500 mg Oral Tablet - take 1 tablet by ORAL route every 12 hours for 7 days; 14 tablet; Refills: 0, rn Product Selection Permitted Signatures: Dispatcher [employer] Rex Ayala MD MD rn Johnson, Sade, RN RN sj1
--- NOTE | 2021-03-14 02:46 | ER ---
Nurse's Notes [facility] Name: Ayden Marie Age: 25 yrs Sex: Male : 1995 Arrival Date: 03/14/2021 Time: 00:49 Bed 20 Private MD: Diagnosis: Hematuria, unspecified;Urinary calculus, unspecified Presentation: 03/14 00:59 Chief complaint: Patient states: sudden onset of LLQ while laying down, frequent sj1 urination, hematuria. c/o nausea denies vomiting and diarrhea. Coronavirus screen: Vaccine status: Patient reports receiving the 1st dose of the Covid vaccine. Ebola Screen: Patient negative for fever greater than or equal to 101.5 degrees Fahrenheit, and additional compatible Ebola Virus Disease symptoms Patient denies exposure to infectious person. Patient denies travel to an Ebola-affected area in the 21 days before illness onset. No symptoms or risks identified at this time. Initial Sepsis Screen: Does the patient meet any 2 criteria? No. Patient's initial sepsis screen is negative. Does the patient have a suspected source of infection? No. Patient's initial sepsis screen is negative. Risk Assessment: Do you want to hurt yourself or someone else? Patient reports no desire to harm self or others. Onset of symptoms was March 14, 2021. 00:59 Method Of Arrival: Ambulatory sj1 00:59 Acuity: YENNY 3 sj1 Triage Assessment: 01:02 General: Appears in no apparent distress. Behavior is calm, cooperative, appropriate sj1 for age. Pain: Complains of pain in LLQ Pain does not radiate. Pain currently is 5 out of 10 on a pain scale. Quality of pain is described as sharp, Pain began suddenly, Is intermittent, Alleviated by. EENT: No deficits noted. Neuro: No deficits noted. Cardiovascular: No deficits noted. Respiratory: No deficits noted. GI: Reports lower abdominal pain, nausea. : Reports urinary frequency. Derm: No deficits noted. Musculoskeletal: No deficits noted. Historical: - Allergies: 01:02 No Known Allergies; sj1 - Home Meds: 01:02 None [Active]; sj1 - PSHx: 01:02 Appendectomy; sj1 - Immunization history:: Adult Immunizations up to date, Client reports receiving the 1st dose of the Covid vaccine. - Social history:: Smoking status: Patient reports the use of cigarette tobacco products, smokes one-half pack cigarettes per day, Patient uses alcohol, occasionally. Patient/guardian denies using street drugs. - Family history:: not pertinent. - Hospitalizations: : No recent hospitalization is reported. Screenin:04 Abuse screen: Denies threats or abuse. Denies injuries from another. Nutritional sj1 screening: No deficits noted. Tuberculosis screening: No symptoms or risk factors identified. Fall Risk None identified. Vital Signs: 00:59 BP 135 / 81; Pulse 87; Resp 18 S; Temp 98.7(O); Pulse Ox 98% on R/A; Weight 127.01 kg sj1 (R); Height 5 ft. 9 in. (175.26 cm) (R); Pain 5/10; 02:45 BP 131 / 84; Pulse 84; Resp 17; Temp 98.6; Pulse Ox 99% on R/A; mr2 00:59 Body Mass Index 41.35 (127.01 kg, 175.26 cm) sj1 ED Course: 00:49 Patient arrived in ED. wm 00:50 Rex Mora MD is Attending Physician. rn 01:02 Triage completed. sj1 01:02 Arm band placed on right wrist. sj1 01:04 Patient has correct armband on for positive identification. sj1 01:20 Urine Culture Sent. ld1 01:20 Urine Microscopic Only Sent. ld1 01:30 Scout Monte, RN is Primary Nurse. wg 01:30 monitoring tech on. Pulse ox on. NIBP on. wg 01:30 Inserted saline lock: 22 gauge in right antecubital area, using aseptic technique. wg Blood collected. 22g. Diffusics. Patient maintains SpO2 saturation greater than 95% on room air. 01:43 Basic Metabolic Panel Sent. wg 01:43 CBC with Automated Diff Sent. wg 01:43 CT Stone Protocol Sent. wg 01:43 Basic Metabolic Panel Sent. wg 01:43 CBC with Diff Sent. wg 01:43 Hepatic Function Sent. wg 01:43 Lipase Sent. wg 01:51 CT Stone Protocol In Process Unspecified. EDMS 02:56 No provider procedures requiring assistance completed. IV discontinued. mr2 Administered Medications: No medications were administered Outcome: 02:45 Discharge ordered by . rn 02:57 Discharged to home ambulatory. mr2 02:57 Condition: stable 02:57 Discharge instructions given to patient, Instructed on medication usage. 03:09 Patient left the ED. Signatures: Dispatcher [employer] EDMS Rex Mora MD MD rn Dibbern, Lauren RN RN ld1 Miriam Morin Liam, RN wg Reynard, Mike, RN RN mr2 Bruna Stewart, RN RN sj1 Corrections: (The following items were deleted from the chart) 01:32 01:31 General: Appears [facility]
[2021-03-14 03:30] VITALS: BP 131/84; TEMP 98.6; O2SAT 99
--- NOTE | 2021-03-14 13:19 | RAD REPORT ---
EXAM DESCRIPTION: CT - Stone Protocol - 03/14/2021 6:13 am CLINICAL HISTORY: 25 years, Male, left flank pain COMPARISON: None. TECHNIQUE: Multiple transaxial tomograms of the abdomen and pelvis were performed from the lung base s to the symphysis pubis 3 mm slice thickness at 3 mm interval reconstruction, without administration of IV and oral contrast. Multiplanar reformats in the sagittal and coronal plane were generated and reviewed. This exam was performed according to our departmental dose-optimization protocol, which includes auto mated exposure control, adjustment of the mA and/or kV according to patient size and/or use of iterat lyla reconstruction technique. FINDINGS: The lack of IV and oral contrast limits evaluation of solid organs, subtle lesions cannot be excluded. The lung bases demonstrate to be clear. Grossly the unopacified liver demonstrate decreased attenuation corresponding to fatty infiltration. Otherwise the liver, gallbladder, pancreas, spleen and adrenal glands demonstrate to be within normal limits, no significant focal lesions were identified. There is no biliary duct dilatation. The kidneys demonstrate grossly unremarkable. There is no evidence for nephrolithiasis and/or hydro nephrosis. No focal masses were demonstrated. The ureters displays normal appearance with normal caliber, no hydroureter was seen. Grossly the unopacified stomach, small bowel and large bowel demonstrate to be within normal limits. There is no evidence for bowel dilatation an/or free air. Surgical clips within the right lower quadr ant corresponding most likely to previous appendectomy The urinary bladder demonstrate was partially distended with no gross abnormalities. The prostate gla nd is unremarkable The aorta demonstrate to be within normal limits. There is no retroperitoneal ly mphadenopathy. There is no evidence for ascites. The rest of the soft tissue demonstrate to be guanaco sly unremarkable. IMPRESSION: No evidence for nephrolithiasis and/or hydronephrosis. Fatty infiltration of the liver. Status post appendectomy. Electronically signed by: Kendall Alonso MD 03/14/2021 2:19 AM CDT Due to temporary technical issues with the PACS/Fluency reporting system, reports are being signed by the in house radiologist without review as a courtesy to ensure prompt reporting. The interpreting r adiologist is fully responsible for the content of the report.
== END 2021-03-14 03:09 | disposition home or self-care (01) ==
LOC: ER 00:46
DX: N20.9 Urinary calculus, unspecified (principal); F17.210 Nicotine dependence, cigarettes, uncomplicated
CPT/HCPCS: 36415; 74176; 76377; 80048; 80076; 81003; 81015; 83690; 85025; 87086; 87088; 99285

== ENCOUNTER 2021-04-06 21:47 | Emergency (ER) | payer SELFPAY ==
--- NOTE | 2021-04-07 00:12 | ER ---
Nurse's Notes [facility] Name: Ayden Marie Age: 25 yrs Sex: Male : 1995 Arrival Date: 04/06/2021 Time: 21:50 Bed 11 Private MD: Diagnosis: Acute serous otitis media, left ear;Parotitis Presentation: 04/06 22:17 Chief complaint: Patient states: he has swelling to his left jaw and ear with left ear bb pain which his spouse noticed tonight. Coronavirus screen: At this time, the client does not indicate any symptoms associated with coronavirus-19. Ebola Screen: No symptoms or risks identified at this time. Initial Sepsis Screen: Does the patient meet any 2 criteria? No. Patient's initial sepsis screen is negative. Does the patient have a suspected source of infection? No. Patient's initial sepsis screen is negative. Risk Assessment: Do you want to hurt yourself or someone else? Patient reports no desire to harm self or others. Onset of symptoms is unknown. 22:17 Method Of Arrival: Ambulatory bb 22:17 Acuity: YENNY 4 bb Triage Assessment: 22:21 General: Appears in no apparent distress. uncomfortable, obese, Behavior is calm, bb cooperative. Pain: Complains of pain in left jaw and left ear Pain currently is 4 out of 10 on a pain scale. EENT: left ear reddened and swollen. Neuro: Level of Consciousness is awake, alert, obeys commands, Oriented to person, place, time, situation. Cardiovascular: Capillary refill < 3 seconds Patient's skin is warm and dry. Respiratory: Airway is patent Respiratory effort is even, unlabored, Respiratory pattern is regular. GI: No signs and/or symptoms were reported involving the gastrointestinal system. Derm: Skin is pink, warm \T\ dry. Musculoskeletal: Circulation, motion, and sensation intact. Historical: - Allergies: 22:21 No Known Allergies; bb - Home Meds: 22:21 None [Active]; bb - PMHx: 22:21 borderline hypertension; bb - PSHx: 22:21 Appendectomy; bb - Immunization history:: Adult Immunizations up to date, Client reports receiving the 1st dose of the Covid vaccine. - Social history:: Smoking status: Patient reports the use of cigarette tobacco products, smokes one-half pack cigarettes per day, Patient uses alcohol, occasionally. Patient/guardian denies using street drugs. Screenin:24 Abuse screen: Denies threats or abuse. Nutritional screening: No deficits noted. bb Tuberculosis screening: No symptoms or risk factors identified. Fall Risk None identified. Assessment: 22:24 Reassessment: No changes from previously documented assessment. Patient is alert, bb oriented x 3, equal unlabored respirations, skin warm/dry/pink. see triage assessment. 04/07 00:27 Reassessment: Patient appears in no apparent distress at this time. Patient and/or em family updated on plan of care and expected duration. Pain level reassessed. Patient is alert, oriented x 3, equal unlabored respirations, skin warm/dry/pink. Patient states feeling better. Vital Signs: 04/06 22:17 BP 134 / 84; Pulse 84; Resp 16 S; Temp 98.1(TE); Pulse Ox 99% on R/A; Weight 108.86 kg bb (R); Height 5 ft. 8 in. (172.72 cm) (R); Pain 4/10; 04/07 00:27 BP 128 / 78; Pulse 78; Resp 16; Pulse Ox 98% on R/A; em 04/06 22:17 Body Mass Index 36.49 (108.86 kg, 172.72 cm) bb ED Course: 04/06 21:50 Patient arrived in ED. 22:08 Jonatan Estrella PA is PHCP. [facility] 22:08 Yasmani Quick MD is Attending Physician. [facility] 22:21 Triage completed. bb 22:21 Arm band placed on Patient placed in an exam room, on a stretcher, on pulse oximetry. bb 22:24 Karine Maki, RN is Primary Nurse. bb 22:24 Patient has correct armband on for positive identification. Bed in low position. Call bb light in reach. 23:02 Missed attempt(s): 18 gauge in right antecubital area. Bleeding controlled, band aid bb applied, catheter tip intact. Inserted saline lock: 18 gauge in left antecubital area, using aseptic technique. 23:29 CT Facial Bones W/ Con \T\ Mpr In Process Unspecified. EDMS 04/07 00:12 Kateryna Merritt MD is Referral Physician. [facility] 00:26 No provider procedures requiring assistance completed. IV discontinued, intact, em bleeding controlled, No redness/swelling at site. Pressure dressing applied. Administered Medications: No medications were administered Outcome: 00:12 Discharge ordered by MD. mojica 00: Discharged to home ambulatory. em 00:26 Condition: stable 00:26 Discharge instructions given to patient, Instructed on discharge instructions, follow up and referral plans. medication usage, Demonstrated understanding of instructions, follow-up care, medications, Prescriptions given X 1. 00:27 Patient left the ED. em Signatures: Dispatcher [employer] Jonatan Donnelly PA PA jmm Munoz, Edgar, RN RN Karine Huang RN RN Miriam Welch
--- NOTE | 2021-04-07 00:12 | EDPHYS ---
Physician Documentation [facility] Name: Ayden Marie Age: 25 yrs Sex: Male : 1995 Arrival Date: 04/06/2021 Time: 21:50 Bed 11 Private MD: ED Physician Yasmani Quick HPI: 04/06 23:27 This 25 yrs old Male presents to ER via Ambulatory with complaints of Facial jmm Swelling. 23:27 The patient or guardian reports swelling. Onset: The symptoms/episode began/occurred jmm today. Associated signs and symptoms: Loss of consciousness: This patient did not experience any loss of consciousness. Associated signs and symptoms: Pertinent negatives: shortness of breath, sore throat. This is a 25-year-old male with history of hypertension the presents emerged department with complaints of left-sided facial swelling with some ear pain. Denies fever, denies tooth ache, denies vomiting.. Historical: - Allergies: 22:21 No Known Allergies; bb - Home Meds: 22:21 None [Active]; bb - PMHx: 22:21 borderline hypertension; bb - PSHx: 22:21 Appendectomy; bb - Immunization history:: Adult Immunizations up to date, Client reports receiving the 1st dose of the Covid vaccine. - Social history:: Smoking status: Patient reports the use of cigarette tobacco products, smokes one-half pack cigarettes per day, Patient uses alcohol, occasionally. Patient/guardian denies using street drugs. ROS: 23:27 Constitutional: Negative for fever, chills, and weight loss, Cardiovascular: Negative jmm for chest pain, palpitations, and edema, Respiratory: Negative for shortness of breath, cough, wheezing, and pleuritic chest pain. 23:27 ENT: Positive for ear pain. 23:27 All other systems are negative. Exam: 23:27 Constitutional: This is a well developed, well nourished patient who is awake, alert, jmm and in no acute distress. 23:27 Neck: Trachea midline, Supple Chest/axilla: Normal chest wall appearance and motion. Cardiovascular: Regular rate and rhythm. No edema appreciated Respiratory: Normal respirations, no respiratory distress appreciated Abdomen/GI: Non distended, soft Back: Normal ROM Skin: General appearance color normal MS/ Extremity: Moves all extremities, no obvious deformities appreciated, no edema noted to the lower extremities Neuro: Awake and alert, normal gait Psych: Behavior is normal, Mood is normal, Patient is cooperative and pleasant 23:27 Head/face: Noted is swelling, that is mild, of the left jaw. Vital Signs: 22:17 BP 134 / 84; Pulse 84; Resp 16 S; Temp 98.1(TE); Pulse Ox 99% on R/A; Weight 108.86 kg bb (R); Height 5 ft. 8 in. (172.72 cm) (R); Pain 09/07; 04/07 00:27 BP 128 / 78; Pulse 78; Resp 16; Pulse Ox 98% on R/A; em 04/06 22:17 Body Mass Index 36.49 (108.86 kg, 172.72 cm) bb MDM: 04/06 22:30 Patient medically screened. [facility] 04/07 00:10 Data reviewed: vital signs, nurses notes. Counseling: I had a detailed discussion with [facility] the patient and/or guardian regarding: the historical points, exam findings, and any diagnostic results supporting the discharge/admit diagnosis, radiology results, the need for outpatient follow up, to return to the emergency department if symptoms worsen or persist or if there are any questions or concerns that arise at home. ED course: Is alert nontoxic in appearance in the ED. Mild TM erythema noticed on physical exam. Will treat for otitis media. CT was nonspecific showing some edema around the parotid region. Patient will be advised to follow-up with ENT for further evaluation otherwise given strict return precautions. Patient understood and agrees plan of care.. 04/06 23:38 Order name: CREATININE WHOLE BLOOD; Complete Time: 23:38 EDNH 04/06 22:33 Order name: CT Facial Bones W/ Con \T\ Mpr [facility] 04/06 22:33 Order name: Saline Lock; Complete Time: 23:03 [facility] Administered Medications: No medications were administered Disposition: 01:16 Co-signature as Attending Physician, Yasmani Quick MD. [email or web address] Disposition Summary: 04/07/21 00:12 Discharge Ordered Location: Home [facility] Condition: Stable [facility] Diagnosis - Acute serous otitis media, left ear [facility] - Parotitis [facility] Followup: [facility] - With: Private Physician - When: 2 - 3 days - Reason: Recheck today's complaints, Continuance of care, Re-evaluation by your physician Followup: [facility] - With: Kateryna Merritt MD - When: 2 - 3 days - Reason: Recheck today's complaints, Continuance of care, Re-evaluation by your physician Discharge Instructions: - Discharge Summary Sheet jmm - Otitis Media, Adult jmm - Parotitis jmm Forms: - Medication Reconciliation Form jmm - Thank You Letter jmm - Antibiotic Education jmm - Prescription Opioid Use jmm - Work release form em Prescriptions: - Augmentin 875-125 mg Oral Tablet - take 1 tablet by ORAL route every 12 hours for 10 days; 20 tablet; Refills: 0, jmm Product Selection Permitted Signatures: Dispatcher [employer] EDJonatan Benz PA PA jmm Ballard, Brenda, JOSIANE RN Yasmani Marcus MD MD [email or web address]
[2021-04-07 00:39] VITALS: TEMP 98.1
[2021-04-07 00:41] VITALS: BP 128/78; O2SAT 98
--- NOTE | 2021-04-07 10:50 | RAD REPORT ---
EXAM DESCRIPTION: CTFacial Bones W Con Mpr04/07/2021 6:30 am CLINICAL HISTORY: Left jaw swelling. COMPARISON: None. TECHNIQUE: Axial CT imaging of the facial bones and soft tissues utilizing intravenous contrast. R eformatted coronal and sagittal images obtained. Examination was performed according to our departmental dose-optimization program, which includes aut omated exposure control, adjustment of the mA and/or kV according to patient size and/or use of itera tive reconstruction technique. FINDINGS: There is subtle asymmetric edema over the left parotid gland. The parotid gland is normal bilaterally. There is no subcutaneous fluid collection. No foreign body or subcutaneous emphysema. Th ere is mild subcutaneous edema noted overlying the anterior mandible. There is no subcutaneous emphys keily, fluid collection or foreign body in this region. The dilatation appears normal. Intraorbital contents are unremarkable. There is mucosal thickening throughout the ethmoid air cells. Significant mucosal thickening in the left maxillary antrum with a retention cyst or polyp. There is no bony erosive changes or fracture seen. The bony orbits, maxilla and mandible appear normal. Tempo romandibular joints are intact. There are tonsilloliths in the right palatine tonsil. Remaining parapharyngeal soft tissues and mucos al spaces appear normal. Scattered nonenlarged lymph nodes throughout the neck. Carotid and jugular v essels appear normal. There are skull base is intact. Imaged portions of the mastoid air cells are cl ear. Unremarkable epiglottis. Prevertebral soft tissues appear normal. Upper cervical spine is intact. IMPRESSION: 1. Nonspecific edema over the anterior mandible. Slight subcutaneous edema in the left periparotid region. No abscess, foreign body or subcutaneous emphysema. No clear etiology. 2. Sinus mucosal disease. Left maxillary retention cyst versus polyp. Electronically signed by: Julia Stone DO 04/07/2021 12:05 AM SENIOR SSIS DEVELOPER Due to temporary technical issues with the PACS/Fluency reporting system, reports are being signed by the in house radiologists without review as a courtesy to insure prompt reporting. The interpreting radiologist is fully responsible for the content of the report.
== END 2021-04-07 00:27 | disposition home or self-care (01) ==
LOC: ER 21:47
DX: K11.20 Sialoadenitis, unspecified (principal); H65.02 Acute serous otitis media, left ear; F17.210 Nicotine dependence, cigarettes, uncomplicated
CPT/HCPCS: 70487; 76377; 82565; 99284; Q9967

== ENCOUNTER 2022-11-02 22:04 | Emergency (ER) | payer SELFPAY ==
--- OUTSIDE RECORDS SUMMARY | 2022-11-02 22:58 | XMS REPORT | Continuity of Care Document ---
:1995 Author Organization [facility] t Address [address] [place] [address] [place] [id number] Care Team Providers Name Role Phone Unavailable Unavailable Unavailable Problems This patient has no known problems. Allergies, Adverse Reactions, Alerts This patient has no known allergies or adverse reactions. Medications This patient has no known medications. Procedures This patient has no known procedures. Results Test Description Test Time Test Comments Results Result Comments Source SARS-CoV-2 (COVID-19), RT-PCR/TMA 2021-07-10 07:46:51 Test Item Value Reference Range Interpretation Comme nts SARS-CoV-2 INTERPRETATION POSITIVE SEE NOTE A S ARS-CoV-2 RNA DETECTEDPositive (test code = 86481) results are indicative of the presence of LISA S-CoV-2 RNA;clinical co rrelation with patient history and other diagnosticinfor mation is necessary to de termine patient infection statu s.Positive results do not rule out bacterial infection or co -infectionwith other viruses. Positive and negative predic tive values oftesting are h ighly dependent on prevalence. SOURCE (test code = 23635) NOT SPECIFIED Note: Methodology is Kyle Paola Real-Time RT-PC R. The expected result or refer ence range is NEGATIVE (Not D etected). For more information reg arding COVID-19 testing to incl ude clinicalinforma tion, methodology detail, intende d use, FDA authorization a ndrecommended fact sheets for delbert ents or healthcare providers, see NewTest Announcement: S ARS-CoV-2 (COVID-19) by N AAT at URL below (note,fact shee ts are provided by method given in report:https:// www.[employer]/cl inicians/client -communications/ Alternatively, see downloadable PDF fact sheet at:https://www. [employer]/COVID- 19-RT-PCR UNLES S OTHERWISE INDICATED, ALL TESTING PERFORMED [facility]. [address] [place] [address] 4 BILLIARD PARLOR MANAGER: KAZ CLAROS M.D. [place] NUMBER [id number] CAP ACCREDITATION N O. [id number]
--- NOTE | 2022-11-02 23:51 | EDPHYS ---
Physician Documentation [facility] Name: Ayden Marie Age: 26 yrs Sex: Male : 1995 Arrival Date: 11/02/2022 Time: 22:04 Bed DX3 Private MD: ED Physician Chi Stephenson HPI: 11/02 23:55 This 26 yrs old Male presents to ER via Ambulatory with complaints of Feel kb like something in throat. 23:55 The patient presents with sore throat. The patient describes throat pain as constant. kb Onset: The symptoms/episode began/occurred just prior to arrival. Severity of symptoms: At their worst the symptoms were mild, in the emergency department the symptoms are unchanged. Modifying factors: The symptoms are alleviated by nothing, the symptoms are aggravated by swallowing, Patient's oral intake status: good. Associated signs and symptoms: Pertinent positives: Sore throat. The patient has not experienced similar symptoms in the past. The patient has not recently seen a physician. Pt reports he had a few beers after work, took a shower and coughed up some phlem. Afterwards felt like something was stuck in his throat. Reports he feels like a ball is in the left side of his throat. aggravated with swallowing. Denies recent illness, fever. . Historical: - Allergies: 22:24 No Known Allergies; vc1 - Home Meds: 22:24 Albuterol Inhl [Active]; vc1 - PMHx: 22:24 borderline hypertension; vc1 - PSHx: 22:24 Appendectomy; vc1 - Immunization history:: Client reports receiving the 1st dose of the Covid vaccine. - Social history:: Smoking status: Patient reports the use of cigarette tobacco products, smokes one-half pack cigarettes per day. ROS: 23:53 Constitutional: Negative for fever, chills, and weight loss. kb 23:53 ENT: Positive for foreign body sensation, sore throat. 23:53 All other systems are negative. Exam: 23:53 Constitutional: This is a well developed, well nourished patient who is awake, alert, kb and in no acute distress. Head/Face: Normocephalic, atraumatic. ENT: Moist Mucous membranes Cardiovascular: Regular rate and rhythm with a normal S1 and S2. No gallops, murmurs, or rubs. No pulse deficits. Respiratory: Respirations even and unlabored. No increased work of breathing. Talking in full sentences Abdomen/GI: Soft, non-tender. No distention Skin: Warm, dry with normal turgor. Normal color. MS/ Extremity: Pulses equal, no cyanosis. Neurovascular intact. Full, normal range of motion. Neuro: Awake and alert, GCS 15, oriented to person, place, time, and situation. Moves all extremities. Normal gait. Vital Signs: 22:18 BP 152 / 87; Pulse 78; Resp 20; Temp 98.1; Pulse Ox 100% ; Weight 127.01 kg; Height 5 vc1 ft. 9 in. ; 23:52 Resp 18; kl 22:18 Body Mass Index 41.35 (127.01 kg, 175.26 cm) vc1 MDM: 22:16 Patient medically screened. kb 23:54 Differential diagnosis: strep, tonsillitis, lymphadenopathy. Data reviewed: vital kb signs, nurses notes. Test considered but Not performed: CT: CT soft tissue neck considered, but pt is nontoxic in appearance, afebrile and symptoms were sudden in onset. Counseling: I had a detailed discussion with the patient and/or guardian regarding: the historical points, exam findings, and any diagnostic results supporting the discharge/admit diagnosis, lab results, the need for outpatient follow up, a family practitioner, to return to the emergency department if symptoms worsen or persist or if there are any questions or concerns that arise at home. 11/02 22:46 Order name: Group A Streptococcus Rapid Sc EDMS Administered Medications: No medications were administered Disposition: 11/03 03:44 Co-signature as Attending Physician, Chi Stephenson MD I agree with the assessment sp4 and plan of care. I reviewed the patient's care provided by the Advanced Practice Provider and agree with the diagnosis and treatment plan. Disposition Summary: 11/02/22 23:49 Discharge Ordered Location: Home kb Condition: Stable kb Diagnosis - Pain in throat kb Followup: kb - With: Emergency Department - When: As needed - Reason: Worsening of condition Followup: kb - With: Private Physician - When: 2 - 3 days - Reason: Recheck today's complaints, Continuance of care, Re-evaluation by your physician Discharge Instructions: - Discharge Summary Sheet kb - Sore Throat, [id number] kb Forms: - Medication Reconciliation Form kb - Thank You Letter kb - Antibiotic Education kb - Prescription Opioid Use kb Signatures: Dispatcher [employer] Kathryn Gonzalez, Tiffanie Yang RN RN vc1 Chi Stephenson MD MD sp4
--- NOTE | 2022-11-02 23:51 | ER ---
Nurse's Notes [facility] Name: Ayden Marie Age: 26 yrs Sex: Male : 1995 Arrival Date: 11/02/2022 Time: 22:04 Bed DX3 Private MD: Diagnosis: Pain in throat Presentation: 11/02 22:18 Chief complaint: Patient states: When I breath through my left nostril it feels like vc1 there is something on the left side of my throat. I do have allergies and wake up in the morning congested. It hurts when I swallow. Coronavirus screen: Vaccine status: Patient reports receiving the 1st dose of the Covid vaccine. [employer] Client denies travel out of the [place] in the last 14 days. At this time, the client does not indicate any symptoms associated with coronavirus-19. Ebola Screen: Patient negative for fever greater than or equal to 101.5 degrees Fahrenheit, and additional compatible Ebola Virus Disease symptoms Patient denies exposure to infectious person. Patient denies travel to an Ebola-affected area in the 21 days before illness onset. No symptoms or risks identified at this time. Initial Sepsis Screen: Does the patient meet any 2 criteria? No. Patient's initial sepsis screen is negative. Does the patient have a suspected source of infection? No. Patient's initial sepsis screen is negative. Risk Assessment: Do you want to hurt yourself or someone else? Patient reports no desire to harm self or others. Onset of symptoms was November 02, 2022. 22:18 Method Of Arrival: Ambulatory vc1 22:18 Acuity: YENNY 4 vc1 Triage Assessment: 22:25 General: Appears in no apparent distress. comfortable, Behavior is calm, cooperative, vc1 appropriate for age. Pain: Complains of pain in left aspect of posterior pharynx Pain does not radiate. EENT: Reports pain when swallowing. Neuro: Level of Consciousness is awake, alert, obeys commands, Oriented to person, place, time, situation, Appropriate for age. Cardiovascular: No deficits noted. Respiratory: Airway is patent Respiratory effort is even, unlabored, Respiratory pattern is regular, symmetrical. GI: No deficits noted. No signs and/or symptoms were reported involving the gastrointestinal system. : No deficits noted. No signs and/or symptoms were reported regarding the genitourinary system. Derm: No deficits noted. No signs and/or symptoms reported regarding the dermatologic system. Musculoskeletal: No deficits noted. No signs and/or symptoms reported regarding the musculoskeletal system. Historical: - Allergies: 22:24 No Known Allergies; vc1 - Home Meds: 22:24 Albuterol Inhl [Active]; vc1 - PMHx: 22:24 borderline hypertension; vc1 - PSHx: 22:24 Appendectomy; vc1 - Immunization history:: Client reports receiving the 1st dose of the Covid vaccine. - Social history:: Smoking status: Patient reports the use of cigarette tobacco products, smokes one-half pack cigarettes per day. Screenin:26 [facility] ED Fall Risk Assessment (Adult) History of falling in the last 3 months, vc1 including since admission No falls in past 3 months (0 pts) Confusion or Disorientation No (0 pts) Intoxicated or Sedated No (0 pts) Impaired Gait No (0 pts) Mobility Assist Device Used No (0 pt) Altered Elimination No (0 pt) Score/Fall Risk Level 0 - 2 = Low Risk Oriented to surroundings, Maintained a safe environment, Educated pt \T\ family on fall prevention, incl call for assistance when getting out of bed. Abuse screen: Denies threats or abuse. Nutritional screening: No deficits noted. Tuberculosis screening: No symptoms or risk factors identified. Assessment: 22:32 General: Appears in no apparent distress. comfortable, Behavior is calm, cooperative. kl Pain: Complains of pain in left aspect of posterior pharynx Pain currently is 3 out of 10 on a pain scale. Neuro: No deficits noted. Cardiovascular: No deficits noted. Respiratory: No deficits noted. GI: No deficits noted. No signs and/or symptoms were reported involving the gastrointestinal system. : No deficits noted. No signs and/or symptoms were reported regarding the genitourinary system. EENT: Reports pain when swallowing. Derm: No deficits noted. No signs and/or symptoms reported regarding the dermatologic system. Musculoskeletal: No deficits noted. No signs and/or symptoms reported regarding the musculoskeletal system. 23:52 Reassessment: Patient appears in no apparent distress at this time. Patient is alert, kl oriented x 3, equal unlabored respirations, skin warm/dry/pink. Vital Signs: 22:18 BP 152 / 87; Pulse 78; Resp 20; Temp 98.1; Pulse Ox 100% ; Weight 127.01 kg; Height 5 vc1 ft. 9 in. ; 23:52 Resp 18; kl 22:18 Body Mass Index 41.35 (127.01 kg, 175.26 cm) vc1 ED Course: 22:08 Patient arrived in ED. es 22:16 Kathryn Mercer FNP-C [facility] kb 22:16 Chi Stephenson MD is Attending Physician. kb 22:24 Triage completed. vc1 22:25 Arm band placed on left wrist. vc1 22:33 No provider procedures requiring assistance completed. Patient did not have IV access kl during this emergency room visit. 23:53 Patient has correct armband on for positive identification. kl Administered Medications: No medications were administered Medication: 22:27 VIS not applicable for this client. vc1 Outcome: 23:49 Discharge ordered by . kb 23:52 Discharged to home ambulatory. kl 23:52 Condition: stable 23:52 Discharge instructions given to patient, Instructed on discharge instructions, follow up and referral plans. Demonstrated understanding of instructions, follow-up care. 23:53 Patient left the ED. kl Signatures: Kathryn Mercer FNP-C FNP-Ckb Lewis, Kimberly RN Katie Rivera Vanessa, RN RN vc1
[2022-11-03 01:04] VITALS: BP 152/87; TEMP 98.1; O2SAT 100
== END 2022-11-02 23:53 | disposition home or self-care (01) ==
LOC: ER 22:04
DX: R07.0 Pain in throat (principal)
CPT/HCPCS: 87070; 87081; 99282

== ENCOUNTER 2023-11-24 21:39 | Emergency (ER) | payer SELFPAY ==
--- OUTSIDE RECORDS SUMMARY | 2023-11-24 21:42 | XMS REPORT | Continuity of Care Document ---
Author Name Unknown Address [address] [facility] [address] [place] [address] [facility] Address [address] [facility] [address] [place] [address] Care Team Providers Care Editorial Writer Name Role Phone Kailyn Moore Primary Care Physician Medications Ordered Medication Name Filled Medication Name Start Date Stop Date Current Medication? Ordering Clinician Indication Dosage Frequency Signature (SIG) Comments Components Source benzonatate 100 mg capsule 11-14 00:00: 00 Yes 1mg Aashish Monroy albuterol sulfate HFA 90 mcg/actuati on aerosol inhaler 11-14 00:00: 00 Yes 12mcg/a ctuatio n Aashish Monroy Flonase Sensimist 27.5 mcg/actuati on nasal spray,suspe nsion 11-14 00:00: 00 Yes 12mcg/a ctuatio n Aashish Monroy TAKE 1 TABLET BY MOUTH TWICE DAILY NEEDED FOR SPASMS 02-23 00:00: 00 Yes Aashish Monroy TAKE 1 TABLET BY MOUTH TWICE DAILY 02-23 00:00: 00 Yes Aashish Monroy Bromfed DM 2 mg-30 mg-10 mg/5 mL oral syrup 2-03 00:00: 00 Yes 10mg/5 mL Aashish Monroy azithromyci n 250 mg tablet 02-13 00:00: 00 Yes mg Aashish Monroy Bromfed DM 2 mg-30 mg-10 mg/5 mL oral syrup 02-13 00:00: 00 Yes 10mg/5 mL Aashish Monroy fluticasone propionate 50 mcg/actuati on nasal spray,suspe nsion 07-04 00:00: 00 Yes 2mcg/ac tuation Aashish Monroy loratadine 10 mg tablet 07-04 00:00: 00 Yes 1mg Aashish Monroy amoxicillin 875 mg tablet 07-04 00:00: 00 Yes 1mg Aashish Monroy benzonatate 100 mg capsule 07-04 00:00: 00 Yes 1mg Aashish Monroy Vital Signs Vital Name Observation Time Observation Value Comments S ourdanna BP Systolic 2018-07-04 16:45:00 132 mm[Hg] Babar Monroy BP Diastolic 2018-07-04 16:45:00 80 mm[Hg] Nigel Monroy Weight Measured 2018-07-04 16:45:00 282.60 pounds Aashish Monroy Height Measured 2018-07-04 16:45:00 68.00 inches Aashish Monroy Body Temperature 2018-07-04 16:45:00 98.30 degrees Aashish Monroy Heart Rate 2018-07-04 16:45:00 90.00 /min Moni Monroy Respiratory Rate 2018-07-04 16:45:00 Aashish Monroy Encounters Start Date/Time End Date/Time Encounter Type Admission Type Attending [facility] Facility Care Department Encounter ID Source 2023-11-15 00:00:00 2023-11-15 00:00:00 Outpatient Visit [facility] [id number] Aashish Monroy Results Test Description Test Time Test Comments Results Result Co mments Source SARS-CoV-2 (COVID-19) by RT-PCR (HIGH RISK)2021-07-10 00:00:00* Test Item Value Reference Range Interpretation Comme nts SARS-CoV-2 INTERPRETATION (t est code = 42896) POSITIVE SOURCE (test code = 36531) NOT SPECIFIED Aashish MonroySARS-CoV-2 (COVID-19) by RT-PCR (HIGH RISK)2020-02-16 00:00:00* Test Item Value Reference Range Interpretation Comme nts SARS-CoV-2 INTERPRETATION (test code = 18402) Negative SOURCE (test code = 15846) NASOPHARYNGEA L_SWAB _IN_VTM__UTM Aashish Monroy Notes Date/Time Note Provider Source 2023-11-15 00:00:00 [id number] T00:00:00+ + +| Plan Activity | Plan Date |+ =========+ +| Start amoxicillin as prescribed | 2018-07-04 || may give Tylenol or Motrin as needed | || RTO in one week if symptoms do not improve | |+ ---------+ +| Supportive measures as discussed: Rest, increase fluids, warm tea with | 2018-07-04 || honey/lemon | || recommend otc coughs/cold/decongestant | || tylenol and ibuprofen recommended | || RTC in 7-10 days if symptoms do not improve or worsen. | || verbalized understanding and agrees with treatment plan | |+ ---------+ +| Cephid 4 plex. If unavailable, just COVID. | 2021-07-03 || | || Quarantine for 5 days from beginning of symptoms. | || If symptoms are subsiding and fever-free, isolation can end with strict | || mask-wearing | || Discussed typical course of COVID. | || Symptom management. Monitor symptoms, OTC medications. | || Stay adequately hydrated. | || ER precautions. | |+ ---------+ +| Azithromycin | 2020-02-14 || bromfed DM, acetaminophen for fever, bodyaches | || prescription and side effects verbally given | || recommend chamomile tea | || warm salt water gargles prn | || ER precautions for difficulty breathing, shortness of breath, fever, abdominal | || pain, N/V/D. | |+ ---------+ +| COVID-19 TESTING, await results | 2021-07-03 || continue social distancing | || cover face with mask, handkerchief, etc when out in public | || will be notified of results in 3-5 days. continue to quarantine, good | || handwashing, wear face mask | || monitor for s/sx of COVID-19 | || ER precautions for shortness of breath, difficulty breathing, abdominal pain, | || N/V/D | || recommend daily vitamins- vitamin C, vitamin D3, zinc | |+ ---------+ +| Start Bromfed 10ml q4-6h for cough x 7days | 2021-07-03 || EDU: warm fluids, stay hydrated, throat lozengers OTC | || FU prn | |+ ---------+ +| Bromfed | 2021-07-03 || shower steam, vaporizer | |+ ---------+ +| FU with provider in person if pain persists after COVID quarantine | 2021-07-03 |+ ---------+ +| Recommend tobacco cessation | 2023-11-15 || Consider setting a quit date | || Discussed possibility of Nicoderm patches or gum, pt will ponder on this | || Discussed possibility of smoking cessation support | |+ ---------+ +| Recommend tobacco cessation | 2023-11-15 || Consider setting a quit date | || Discussed possibility of Nicoderm patches or gum, pt will ponder on this | || Discussed possibility of smoking cessation support | |+ ---------+ +[id number] of TreatmentLNCARE PLANTXTSFA|[facility]-[id number] for patient [id number] Section NarrativeNARRATIVEFormatted C-CDA narrative textSFAStgigi Arnold [facility]2024-06-17T00:00:00 [facility]ish [facility]"
[2023-11-24] MEDS ORDERED: HYDROCODONE/APAP 7.5/325 MG TAB ONE (23:05)
[2023-11-24] MEDS ORDERED: IBUPROFEN 400 MG TAB ONE (23:05)
--- NOTE | 2023-11-24 23:40 | ER ---
Nurse's Notes [facility] Name: Ayden Marie Age: 27 yrs Sex: Male : 1995 Arrival Date: 11/24/2023 Time: 21:39 Bed 9 Private MD: Diagnosis: Chest pain, unspecified-chest wall Presentation: 11/23 21:52 Chief complaint: Patient states: Wednesday pt was working and leaning over a hole and as6 felt a pop in his right ribs. since then the pain has not improved. Coronavirus screen: At this time, the client does not indicate any symptoms associated with coronavirus-19. Ebola Screen: No symptoms or risks identified at this time. Initial Sepsis Screen: Does the patient meet any 2 criteria? No. Patient's initial sepsis screen is negative. Does the patient have a suspected source of infection? No. Patient's initial sepsis screen is negative. Risk Assessment: Do you want to hurt yourself or someone else? Patient reports no desire to harm self or others. Onset of symptoms was November 20, 2023. 21:52 Acuity: YENNY 4 as6 21:52 Method Of Arrival: Ambulatory as6 Triage Assessment: 21:53 General: Appears in no apparent distress. Behavior is calm, cooperative. Pain: as6 Complains of pain in right lateral anterior chest. 21:53 Respiratory: Respiratory effort is even, unlabored, Respiratory pattern is regular, as6 symmetrical. Historical: - Allergies: 21:52 No Known Allergies; as6 - PMHx: 21:52 borderline hypertension; as6 - PSHx: 21:52 Appendectomy; as6 - Immunization history:: Adult Immunizations up to date. - Infectious Disease History:: Denies. - Social history:: Smoking status: Patient reports the use of cigarette tobacco products, smokes one-half pack cigarettes per day. Screenin:48 [facility] ED Fall Risk Assessment (Adult) History of falling in the last 3 months, ss including since admission No falls in past 3 months (0 pts) Confusion or Disorientation No (0 pts) Intoxicated or Sedated No (0 pts) Impaired Gait No (0 pts) Mobility Assist Device Used No (0 pt) Altered Elimination No (0 pt) Score/Fall Risk Level 0 - 2 = Low Risk Maintained a safe environment. Abuse screen: Denies threats or abuse. Denies injuries from another. Nutritional screening: No deficits noted. Tuberculosis screening: Never had TB. Assessment: 23:28 General: Appears in no apparent distress. comfortable, Behavior is calm, cooperative. ss Respiratory: Airway is patent Respiratory effort is even, unlabored, Respiratory pattern is regular, symmetrical. Derm: Skin is pink, warm \T\ dry. normal. Vital Signs: 21:51 BP 140 / 72; Pulse 91; Resp 18; Temp 97.5; Pulse Ox 98% ; Weight 127.01 kg; Height 5 as6 ft. 9 in. ; Pain 8/10; 21:51 Body Mass Index 41.35 (127.01 kg, 175.26 cm) as6 21:51 Pain Scale: Adult as6 ED Course: 21:44 Patient arrived in ED. gm2 21:51 [facility]C [facility] kb 21:51 Andrew Munson MD is Attending Physician. kb 21:51 Arm band placed on right wrist. as6 21:53 Triage completed. as6 22:35 Ribs Right XRAY In Process Unspecified. EDMS 22:35 Chest Single View XRAY In Process Unspecified. EDMS 23:01 Maribel Bates, RN is Primary Nurse. ss 23:47 No provider procedures requiring assistance completed. Patient did not have IV access ss during this emergency room visit. 23:48 Patient has correct armband on for positive identification. Bed in low position. ss Administered Medications: 23:10 Drug: Hydrocodone-Acetaminophen PO (7.5 mg-325 mg) 1 tabs PO once Route: PO; ss 23:48 Follow up: Response: No adverse reaction; Pain is decreased; RASS: Alert and Calm (0) ss 23:10 Drug: Ibuprofen PO 800 mg PO once Route: PO; ss 23:48 Follow up: Response: No adverse reaction ss Outcome: 23:39 Discharge ordered by . kb 23:47 Discharged to home ambulatory, with significant other, ss 23:47 Condition: good 23:47 Discharge instructions given to patient, family, Instructed on discharge instructions, follow up and referral plans. medication usage, Demonstrated understanding of instructions, follow-up care, medications, Prescriptions given X 2, 23:48 Patient left the ED. ss Signatures: Dispatcher [employer] EDMS Kathryn Mercer FNP-C FNP-Ckb Blanchard, Maribel, RN RN ss Alex Groves, RN RN as6 Cinthia Zimmer 2
--- NOTE | 2023-11-24 23:40 | EDPHYS ---
Physician Documentation [facility] Name: Ayden Marie Age: 27 yrs Sex: Male : 1995 Arrival Date: 11/24/2023 Time: 21:39 Bed 9 Private MD: ED Physician Andrew Munson HPI: 11/24 00:22 This 27 yrs old Male presents to ER via Ambulatory with complaints of Cough, kb Rt Side Pain. 00:22 Pt is a 27 year old male who presents for right rib pain that started 3 days ago and kb hasn't improved. States he was laying on his side, reaching into a hole when he felt a pop in his right lower/lateral ribs. Pain worse with cough and movement. Denies shortness of breath. Historical: - Allergies: 11/23 21:52 No Known Allergies; as6 - PMHx: 21:52 borderline hypertension; as6 - PSHx: 21:52 Appendectomy; as6 - Immunization history:: Adult Immunizations up to date. - Infectious Disease History:: Denies. - Social history:: Smoking status: Patient reports the use of cigarette tobacco products, smokes one-half pack cigarettes per day. ROS: 11/24 00:21 Constitutional: As per HPI kb Exam: 00:21 Constitutional: This is a well developed, well nourished patient who is awake, alert, kb and in no acute distress. Head/Face: Normocephalic, atraumatic. ENT: Moist Mucous membranes Cardiovascular: Regular rate Respiratory: Respirations even and unlabored. No increased work of breathing. Talking in full sentences Abdomen/GI: Soft, non-tender. No distention Skin: Warm, dry with normal turgor. Normal color. MS/ Extremity: Pulses equal, no cyanosis. Neurovascular intact. Full, normal range of motion. Neuro: Awake and alert, GCS 15, oriented to person, place, time, and situation. Moves all extremities. Normal gait. 00:21 Chest/axilla: tenderness to right lower and lateral chest (ribs). Vital Signs: 11/23 21:51 BP 140 / 72; Pulse 91; Resp 18; Temp 97.5; Pulse Ox 98% ; Weight 127.01 kg; Height 5 as6 ft. 9 in. ; Pain 8/10; 21:51 Body Mass Index 41.35 (127.01 kg, 175.26 cm) as6 21:51 Pain Scale: Adult as6 MDM: 21:51 Patient medically screened. kb 11/24 00:20 Differential Diagnosis: Other rib fracture, costochondritis, pneumonia. Data reviewed: kb vital signs, nurses notes. Historians other than the Patient: Spouse/Significant Other: . Counseling: I had a detailed discussion with the patient and/or guardian regarding the historical points, exam findings, and any diagnostic results supporting the discharge/admit diagnosis, radiology results, the need for outpatient follow up, a family practitioner, to return to the emergency department if symptoms worsen or persist or if there are any questions or concerns that arise at home. 11/23 22:00 Order name: Ribs Right XRAY kb 11/23 22:00 Order name: Chest Single View XRAY kb Administered Medications: 11/23 23:10 Drug: Hydrocodone-Acetaminophen PO (7.5 mg-325 mg) 1 tabs PO once Route: PO; ss 23:48 Follow up: Response: No adverse reaction; Pain is decreased; RASS: Alert and Calm (0) ss 23:10 Drug: Ibuprofen PO 800 mg PO once Route: PO; ss 23:48 Follow up: Response: No adverse reaction ss Disposition Summary: 11/24/23 23:39 Discharge Ordered Notes: Location: Home kb Condition: Stable kb Diagnosis - Chest pain, unspecified - chest wall kb Followup: kb - With: Emergency Department - When: As needed - Reason: Worsening of condition Followup: kb - With: Private Physician - When: 2 - 3 days - Reason: Recheck today's complaints, Continuance of care, Re-evaluation by your physician Discharge Instructions: - Discharge Summary Sheet kb - Chest Wall Pain, [id number] kb Forms: - Medication Reconciliation Form kb - Antibiotic Education kb - Prescription Opioid Use kb - Patient Portal Instructions kb - Leadership Thank You Letter kb Prescriptions: - Diclofenac Sodium 75 mg Oral tablet, delayed release (enteric coated) - take 1 tablet ORAL route 2 times per day As needed; 30 tablet; Refills: 0, kb Product Selection Permitted - orphenadrine citrate 100 mg Oral Tablet Sustained Release - take 1 tablet ORAL route 2 times per day As needed; 20 tablet; Refills: 0, kb Product Selection Permitted Signatures: Dispatcher [employer] EDKathryn Ott FLIGHT NURSE-C FLIGHT NURSE-Ckb Maribel Bates, RN RN ss Alex Groves, RN RN as6
[2023-11-24 23:55] VITALS: BP 140/72; TEMP 97.5; O2SAT 98
--- NOTE | 2023-11-25 12:31 | RAD REPORT ---
EXAM DESCRIPTION: Right ribs 3 views CLINICAL HISTORY: Right rib pain. TECHNIQUE: Right ribs 3 views including a PA view the chest. COMPARISON: None available. FINDINGS: Heart: Normal size and configuration. Mediastinal Structures: Normal and midline. Lung Melendrez: No active disease. There is no pneumothorax. Pulmonary Vascularity: Normal. Pleural Space: No active disease. Bony Structures: No fractures are identified. IMPRESSION: Normal study. Electronically signed by: Kimani Bello MD 11/24/2023 10:44 PM CDT RP Due to temporary technical issues with the PACS/Fluency reporting system, reports are being signed by the in house radiologist without review as a courtesy to ensure prompt reporting. The interpreting r adiologist is fully responsible for the content of the report.
--- NOTE | 2023-11-25 12:47 | RAD REPORT ---
EXAM DESCRIPTION: Chest Single View CLINICAL HISTORY: Right rib pain. TECHNIQUE: Right ribs 3 views including a PA view the chest. COMPARISON: None available. FINDINGS: Heart: Normal size and configuration. Mediastinal Structures: Normal and midline. Lung Melendrez: No active disease. There is no pneumothorax. Pulmonary Vascularity: Normal. Pleural Space: No active disease. Bony Structures: No fractures are identified. IMPRESSION: Normal study. Electronically signed by: Kimani Bello MD 11/24/2023 10:44 PM CDT RP Due to temporary technical issues with the PACS/Fluency reporting system, reports are being signed by the in house radiologist without review as a courtesy to ensure prompt reporting. The interpreting r adiologist is fully responsible for the content of the report.
== END 2023-11-24 23:48 | disposition home or self-care (01) ==
LOC: ER 21:39
DX: R07.89 Other chest pain (principal); F17.210 Nicotine dependence, cigarettes, uncomplicated
CPT/HCPCS: 71045; 99283